=== PATIENT | female | born 1995 | race Caucasian/White ===

== ENCOUNTER 2022-09-23 08:20 | Inpatient (IN) ==
--- NOTE | 2022-09-23 08:39 | History & Physical Report ---
Date of Service September 23, 2022 Assessment & Plan (1) Uterine contractions at greater than 20 weeks of gestation: Plan: 27 yo at 39.6 wks with uterine contractions, not painful for her VSS Afebrile FHR reassuring Cervix posterior, patient seems comfortable Plan to monitor, ambulate recheck for cervical change All questions were answered. History of Present Illness Primary Care Provider: NO PCP Patient is a 27-year-old G1, P0 at 39 weeks and 6 days of gestation who has been feeling contractions since 4 AM this morning they have been every 6 to 7 minutes she thinks are getting closer. Pain level is 7 out of 10 but she does not require any pain medication she states they are not that bad yet. No LOF/VB. + FM's Her has been uncomplicated. 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) Vital Signs (Past 12 Hours) Vital Signs Temp Pulse BP 09/23/22 08:30 71 130/81 09/23/22 08:28 37.0 C
[2022-09-23] MEDS ORDERED: ACETAMINOPHEN 325 MG TAB PO PRN ×2 (08:55→21:44)
--- NOTE | 2022-09-23 08:58 | Obstetrical Progress Note ---
Date of Service September 23, 2022 Subjective After discussing pain levels patient now rates her pain 4-5/ 10 She desires natural labor, does not want Medications, Oxytocin nor AROM Desires to go home if not in active labor Continue to monitor Results & Data ([facility]) Vital Signs (Past 12 Hours) Vital Signs Temp Pulse BP 09/23/22 08:55 59 L 09/23/22 08:55 136/89 09/23/22 08:30 71 130/81 09/23/22 08:28 37.0 C
[2022-09-23] MEDS ORDERED: LIDOCAINE 1% LOCAL 20 ML VIAL INFIL PRN (12:35)
[2022-09-23] MEDS ORDERED: OXYTOCIN 30 UNITS/500 ML BAG IV PRN ×3 (12:35→21:44)
--- NOTE | 2022-09-23 12:38 | Obstetrical Progress Note ---
Date of Service September 23, 2022 Subjective Patient has been ambulating, pain got more intense VE; 5-6/ 70%/ -2 FHR categ I [place]; ctxs q 3-4 min Plan to admit monitor anticipate Patient plans not to get epidural for now. All questions were answered. Results & Data ([facility]) Vital Signs (Past 12 Hours) Vital Signs Temp Pulse Resp BP 09/23/22 08:56 36.7 C 59 L 20 136/89 09/23/22 12:26 67 09/23/22 12:26 132/85 09/23/22 08:55 59 L 09/23/22 08:55 136/89 09/23/22 08:30 71 130/81 09/23/22 08:28 37.0 C
[2022-09-23] MEDS: LACTATED RINGER'S 1,000 ML IV PRN ×4 (12:59→19:02)
[2022-09-23 13:12] LABS: Hematocrit (blood only) 39.8 % (34.1-44.9); Hemoglobin 14.4 g/dl (12.0-16.0); Mean Corpuscular Hemoglobin 32.8 pg (25.0-34.0); Mean Corpuscular Hgb Conc 36.2 g/dL (32.0-36.0); Mean Corpuscular Volume 90.7 fL (80.0-100.0); Mean Platelet Volume 11.2 fL (9.4-12.3); Platelet Count 223 K/uL (130-400); RDW Coefficient of Variation 12.3 % (11.5-14.5); RDW Standard Deviation 40.5 fL (36.4-46.3); Red Blood Count 4.39 M/uL (3.93-5.22); White Blood Count 17.83 K/ul (4.8-10.8)
[2022-09-23 13:39] LABS: Albumin Globulin Ratio 1.4 (0.9-2); Albumin Level 3.7 gm/dl (3.4-5.0); BUN Creatinine Ratio 18.3 (10-20); Bilirubin,Total 0.4 mg/dl (0.2-1.0); Calcium 9.1 mg/dl (8.5-10.1); Creatinine Clr Calc Pharmacy 138.8 ml/min; Est GFR (African American) 144.8 ml/min; Est GFR (Non-African American) 124.9 ml/min; Globulin 2.7 gm/dl (2.5-4.0); Potassium 3.9 mmol/L (3.5-5.1); Total Protein 6.4 gm/dl (6.0-8.3)
--- NOTE | 2022-09-23 15:19 | Obstetrical Progress Note ---
Date of Service September 23, 2022 Assessment & Plan Admission and Anticipated Discharge Date Admission Date: September 23, 2022 Subjective Patient felt pressure and has been painful VE; 6-7 cm/ 70%/ -1, muscular tension+ in vagina, uncomfortable with exam FHR categ I Plans not to get epidural for now and desires to ambulate Continue to monitor closely Results & Data ([facility]) Vital Signs (Past 12 Hours) Vital Signs Temp Pulse Resp BP 09/23/22 08:56 36.7 C 59 L 20 136/89 09/23/22 12:26 67 09/23/22 12:26 132/85 09/23/22 08:55 59 L 09/23/22 08:55 136/89 09/23/22 08:30 71 130/81 09/23/22 08:28 37.0 C
[2022-09-23] MEDS ORDERED: BUPIVACAINE 0.25% 30 ML VIAL ONE (15:27)
[2022-09-23] MEDS ORDERED: fentaNYL citrate 100 MCG/2 ML VIAL ONE (15:27)
[2022-09-23] MEDS ORDERED: ePHEDrine sulfate 50 MG/ML AMP ONE (15:27)
[2022-09-23] MEDS ORDERED: SODIUM CHLORIDE 0.9% INJ 10 ML VIAL ONE (15:27)
[2022-09-23] MEDS ORDERED: LIDOCAINE 2%/EPINEPHRINE 1:200,000 20 ML SDV ONE (15:28)
[2022-09-23] MEDS ORDERED: fentaNYL 2MCG/ML ROPIVACAINE 1.25MG/ML 100 ML BAG EPI ONE (15:28)
[2022-09-23] MEDS ORDERED: ONDANSETRON INJ 2 MG/ML 2 ML VIAL IV PRN (15:41)
[2022-09-23] MEDS ORDERED: NALOXONE HCL 0.4 MG/1 ML VIAL/CARP IV PRN (15:41)
[2022-09-23] MEDS ORDERED: NALBUPHINE HCL INJ 10 MG/ML AMP IV PRN (15:41)
[2022-09-23] MEDS ORDERED: NALOXONE HCL 1 MG in SODIUM CHLORIDE 0.9% 1000ML 1,000 ML IV PRN (15:41)
[2022-09-23] MEDS ORDERED: ePHEDrine sulfate 50 MG/ML AMP IV PRN (15:41)
[2022-09-23] MEDS ORDERED: diphenhydrAMINE 50 MG/ML VIAL IV PRN (15:41)
[2022-09-23] MEDS ORDERED: fentaNYL 2MCG/ML ROPIVACAINE 1.25MG/ML 100 ML BAG EPI PRN (15:41)
--- NOTE | 2022-09-23 15:41 | Anesthesiology Consultation ---
Date of Service September 23, 2022 Assessment & Plan Chart Review Chart Review: Patient NOT seen in Pre Admission Testing and Acceptable Risk for Labor Epidural Consults Requested none ASA ASA2 Proposed Anesthesia Anesthesia Type: Labor Epidural and CSE Risk / Benefits Reviewed With: PT / POA / Parent / Guardian, Accepts Plan and Informed Consent Obtained History Height/Weight Height: 5 ft 1 in Weight: 84.368 kg Allergies Allergy/AdvReac Type Severity Reaction Status Date / Time azithromycin Allergy Hives Verified 09/23/22 10:43 cephalexin Allergy Hives Verified 09/23/22 10:42 erythromycin base Allergy Hives Verified 09/23/22 10:44 Penicillins Allergy Hives Verified 09/23/22 10:41 Medications Home Medications Medication Instructions Recorded Confirmed Last Taken pediatric multivit 1 tab PO DAILY 09/23/22 09/23/22 1 Day Ago no.50-docosahexaenoic acid 16 mg ~09/22/22 chewable tablet ([employer] [place]-3 DHA) Active Medications Generic Name Dose Route Start Last Admin Trade Name Rashaunq PRN Reason Stop Dose Admin Lactated Ringer's 1,000 mls @ 150 mls/hr 09/23/22 12:35 09/23/22 15:32 Lr IV 09/25/22 12:34 999 mls/hr .[id number] PRN Administration L&D Protocol Protocol NPO Date Last Intake of Fluids: 09/23/22 Time Last Intake of Fluids: 14:00 Date Last Intake of Solids: 09/23/22 Time Last Intake of Solids: 09:00 Exercise / Class Metabolic Activity II 4-5 Yardwork/Stairs/Walk up hill Past Family History Family History Grandfather (Paternal) Diabetes Father Diabetes Grandfather (Maternal) Hypertension Grandmother (Maternal) Hypertension Leukemia Past Anesthesia History No Hx of Anesthesia Complications and No Family Hx of Anesthesia Complications History of PONV No Hx of PONV and No Hx of Motion Sickness Social History Smoking Status: Never smoker Do You Dip or Chew Tobacco: No Hx Alcohol Use: No Hx Substance Use: No substance use type: does not use Review of Systems no chest pain or sob Physical Exam Vital Signs Last Vital Signs Temp 36.6 C 09/23/22 15:37 Pulse 79 09/23/22 15:37 Resp 20 09/23/22 15:37 BP 132/75 09/23/22 15:37 Pulse Ox 100 09/23/22 15:37 ENMT Mouth: no TMJ abnormality Thyromental Distance: > or= 3.5 Finger Breadths Mallampati Class: II Neck normal visual inspection Respiratory normal respiratory effort Auscultation: lungs clear to auscultation bilaterally Cardiovascular Rate/Rhythm: regular rate and regular rhythm Musculoskeletal Spine: normal cervical ROM Neurologic moves all extremities Psychiatric Orientation: alert and oriented x 3 Testing Laboratory Results 09/23/22 12:59 09/23/22 12:59 Blood Type B Positive 09/23/22 12:59 Antibody Screen NEGATIVE 09/23/22 12:59
--- NOTE | 2022-09-23 18:53 | Obstetrical Progress Note ---
Date of Service September 23, 2022 Assessment & Plan Admission and Anticipated Discharge Date Admission Date: September 23, 2022 Subjective Patient is reevaluated. She received epidural and comfortable now. SROM'ed at 18:15 FHR categ I VE; 8-9 cm/ 90%/ 0, meconium stained fluid+ Recommended augmentation with Oxytocin and she agreed. Continue to monitor closely Results & Data ([facility]) Vital Signs (Past 12 Hours) Vital Signs Temp Pulse Resp BP Pulse Ox 09/23/22 08:56 36.7 C 59 L 20 136/89 09/23/22 18:47 100 09/23/22 18:47 84 09/23/22 18:42 100 09/23/22 18:42 77 09/23/22 18:37 100 09/23/22 18:37 82 09/23/22 18:37 77 09/23/22 18:37 118/62 09/23/22 18:00 16 09/23/22 18:00 37.0 C 16 09/23/22 18:32 100 09/23/22 18:32 77 09/23/22 18:27 100 09/23/22 18:27 71 09/23/22 18:23 81 09/23/22 18:23 133/73 09/23/22 18:22 100 09/23/22 18:22 86 09/23/22 18:20 91 09/23/22 18:20 94 H 09/23/22 16:03 36.9 C 09/23/22 18:17 99 09/23/22 18:17 83 09/23/22 18:12 100 09/23/22 18:12 69 09/23/22 18:07 100 09/23/22 18:07 72 09/23/22 18:07 67 09/23/22 18:07 95/50 L 09/23/22 18:02 100 09/23/22 18:02 71 09/23/22 17:57 100 09/23/22 17:57 71 09/23/22 17:52 100 09/23/22 17:52 63 09/23/22 17:52 95/50 L 09/23/22 17:47 100 09/23/22 17:47 64 09/23/22 17:42 99 09/23/22 17:42 69 09/23/22 17:38 64 09/23/22 17:38 106/59 L 09/23/22 17:37 100 09/23/22 17:37 76 09/23/22 17:34 92 09/23/22 17:34 105 H 09/23/22 17:32 100 09/23/22 17:32 97 H 09/23/22 17:27 99 09/23/22 17:27 96 H 09/23/22 17:22 100 09/23/22 17:22 105 H 09/23/22 17:22 117/65 09/23/22 17:17 100 09/23/22 17:17 88 09/23/22 17:12 100 09/23/22 17:12 84 09/23/22 17:07 100 09/23/22 17:07 86 09/23/22 17:05 81 09/23/22 17:05 115/67 09/23/22 17:02 100 09/23/22 17:02 74 09/23/22 17:00 83 09/23/22 17:00 117/68 09/23/22 16:57 100 09/23/22 16:57 91 H 09/23/22 16:56 82 09/23/22 16:56 120/65 09/23/22 16:52 100 09/23/22 16:52 77 09/23/22 16:50 77 09/23/22 16:50 110/63 09/23/22 16:47 100 09/23/22 16:47 78 09/23/22 16:45 72 09/23/22 16:45 112/63 09/23/22 16:42 100 09/23/22 16:42 79 09/23/22 16:40 98 H 09/23/22 16:40 105/67 09/23/22 16:37 100 09/23/22 16:37 74 09/23/22 16:35 74 09/23/22 16:35 113/69 09/23/22 16:32 100 09/23/22 16:32 78 09/23/22 16:31 72 09/23/22 16:31 114/69 09/23/22 16:27 96 09/23/22 16:27 83 09/23/22 16:26 96 H 09/23/22 16:26 112/66 09/23/22 16:22 100 09/23/22 16:22 83 09/23/22 16:21 75 09/23/22 16:21 111/73 09/23/22 16:17 100 09/23/22 16:17 72 09/23/22 16:15 80 09/23/22 16:15 117/73 09/23/22 16:12 100 09/23/22 16:12 73 09/23/22 16:10 76 09/23/22 16:10 113/68 09/23/22 16:07 100 09/23/22 16:07 74 09/23/22 16:03 87 09/23/22 16:03 117/77 09/23/22 16:02 100 09/23/22 16:02 87 09/23/22 16:01 80 09/23/22 16:01 116/73 09/23/22 15:59 81 09/23/22 15:59 116/71 09/23/22 15:57 100 09/23/22 15:57 80 09/23/22 15:57 117/69 09/23/22 15:56 91 H 09/23/22 15:56 124/62 09/23/22 15:54 89 09/23/22 15:54 152/76 H 09/23/22 15:52 100 09/23/22 15:52 85 09/23/22 15:47 100 09/23/22 15:47 84 09/23/22 15:42 100 09/23/22 15:42 72 09/23/22 15:41 94 09/23/22 15:41 94 H 09/23/22 15:37 20 09/23/22 15:37 36.6 C 20 09/23/22 15:37 100 09/23/22 15:37 79 09/23/22 15:37 78 09/23/22 15:37 132/75 09/23/22 12:26 67 09/23/22 12:26 132/85 09/23/22 08:55 59 L 09/23/22 08:55 136/89 09/23/22 08:30 71 130/81 09/23/22 08:28 37.0 C
[2022-09-23] MEDS ORDERED: MINERAL OIL 30 ML UDC ONE (20:39)
[2022-09-23] MEDS ORDERED: LIDOCAINE 2% LOCAL 20 ML VIAL ONE ×2 (21:21→21:29)
[2022-09-23] MEDS ORDERED: bisacodyL 10 MG SUPP PR PRN (21:44)
[2022-09-23] MEDS ORDERED: BENZOCAINE 20% AER SPR 82.5 GM CAN EXT PRN (21:44)
[2022-09-23] MEDS ORDERED: DIPHTHERIA/TETANUS/PERTUSSIS 0.5 ML SYR/VIAL IM ONE (21:44)
[2022-09-23] MEDS ORDERED: HYDROCORTISONE ACETATE 25 MG SUPP PR PRN (21:44)
[2022-09-23] MEDS ORDERED: oxyCODONE/ACETAMINOPHEN 5mg/325mg TAB PO PRN (21:44)
[2022-09-23] MEDS ORDERED: MEASLES, MUMPS & RUBELLA VIRUS VIAL SQ ONE (21:44)
--- NOTE | 2022-09-23 21:54 | Delivery Summary ---
Vaginal Delivery Summary Date of Service September 23, 2022 Vaginal Delivery Summary Patient was found to be fully dilated and desire to push she pushed for about 50 minutes and delivered the head without difficulty. Right hand came with the had, then the shoulders were delivered with minimal traction, the baby was handed to the mother where mouth and nose were suctioned. The cord was clamped times and cut at 1 minute delay. The baby was vigorously moving and crying at that point. Then the vagina and perineum were checked for lacerations. There was 1/3 degree perineal laceration at the posterior fourchette, which was confirmed with rectal exam. Rest of the vagina and labia were intact. Then the gloves were changed and then the placenta was found to be in the vagina, delivered spontaneously and was intact and complete. Uterus was explored and found to be empty. The lower segment was cleared of all clots and debris's, fundus was firm. IV oxytocin infusion was started. The external sphincter muscles were held with Allis clamps and brought to the midline. With 2-0 Vicryl multiple [id number] stitches were placed around the sphincter muscles. Then the rectal exam was repeated and excellent sphincter tone was noted and no sutures were felt. This sphincter area is reinforced with more sutures on the perineal body muscles. The rest of the vagina and bulbocavernosus muscles were repaired with another 2- 0 Vicryl in a running locked fashion. Vagina was friable and oozing minimally. It was covered with Hector powder. An excellent hemostasis was achieved. Mom and baby tolerated procedure well. Baby was a viable female , delivered at 21:10 PM, Apgars were 8/9. No complications happened and I was present during whole procedure. The end of the procedure sponge needle and instrument count was correct x2. EBL was 200 mL.
[2022-09-23] MEDS: IBUPROFEN 600 MG TAB PO PRN (23:24)
[2022-09-23] MEDS ORDERED: LIDOCAINE 2% LOCAL 50 ML VIAL INSTIL ONE (23:51)
[2022-09-23] MEDS ORDERED: MINERAL OIL 30 ML UDC PR ONE (23:52)
[2022-09-23] MEDS ORDERED: LIDOCAINE 1% LOCAL 20 ML VIAL INJ STA (23:56)
[2022-09-24] MEDS: IBUPROFEN 600 MG TAB PO PRN ×4 (03:32→18:04)
[2022-09-24 06:36] LABS: Hematocrit (blood only) 34.6 % (34.1-44.9); Hemoglobin 12.3 g/dl (12.0-16.0); Mean Corpuscular Hemoglobin 32.6 pg (25.0-34.0); Mean Corpuscular Hgb Conc 35.5 g/dL (32.0-36.0); Mean Corpuscular Volume 91.8 fL (80.0-100.0); Mean Platelet Volume 11.2 fL (9.4-12.3); Platelet Count 188 K/uL (130-400); RDW Coefficient of Variation 12.4 % (11.5-14.5); RDW Standard Deviation 41.4 fL (36.4-46.3); Red Blood Count 3.77 M/uL (3.93-5.22)
[2022-09-24] MEDS: PRENATAL VITAMIN 1 TAB PO SCH (08:33)
[2022-09-24] MEDS: DOCUSATE SODIUM 100 MG CAP PO SCH ×2 (08:33→20:01)
[2022-09-24] MEDS: FERROUS SULFATE 325 MG TAB PO SCH (08:33)
--- NOTE | 2022-09-24 08:37 | Anesthesia Procedure Note ---
Date of Service September 24, 2022 Anesthesia Post Epidural Note Vital Signs Vital Signs: Temp Pulse Resp BP Pulse Ox O2 Del Method 36.5 C 70 18 108/80 97 09/24/22 03:10 09/24/22 03:10 09/24/22 03:10 09/24/22 03:10 09/24/22 03:10 09/24/22 03:10 Notes Mental Status: alert / awake / arousable and participated in evaluation Nausea / Vomiting: adequately controlled Pain: adequately controlled Airway Patency, RR, SpO2: stable & adequate BP & HR: stable & adequate Hydration State: stable & adequate Neuraxial Anesthesia: was administered and sensory block is resolving Anesthetic Complications: no major complications apparent Epidural: Removed without complications and With tip intact
--- NOTE | 2022-09-24 08:59 | Obstetrical Progress Note ---
Date of Service September 24, 2022 Assessment & Plan (1) Normal course: Continue routine PP course D/c home tomorrow if well (2) Third degree perineal laceration: Colace for 30 days Avoid staining and opioids if possible Subjective Ambulation: ambulating normally Voiding: no voiding problems Passing Gas:: Yes Diet Tolerance:: regular diet Lochia:: Moderate Feeding Type:: breast feeding Current Pain Level(1-10): 2 Doing well No complaints except pain of laceration. Meds and ice pack helping Physical Exam Constitutional WD/WN, vitals as above Respiratory normal respiratory effort, lungs clear to auscultation Cardiovascular RRR, no murmur, no edema Gastrointestinal (Abdomen) normal bowel sounds, soft, nontender, no hepatosplenomegaly Results & Data ([facility]) Vital Signs (Past 12 Hours) Vital Signs Temp Pulse Pulse Resp BP BP Pulse Ox 09/24/22 03:10 36.5 C 70 18 108/80 97 09/24/22 01:20 37.2 C 82 18 98 09/23/22 23:50 18 09/23/22 23:20 18 09/23/22 23:52 89 09/23/22 23:52 126/65 09/23/22 23:37 87 09/23/22 23:37 123/67 09/23/22 23:22 84 09/23/22 23:22 124/67 09/23/22 23:07 88 09/23/22 23:07 125/66 09/23/22 22:52 90 09/23/22 22:52 133/70 09/23/22 22:49 91 H 09/23/22 22:49 123/59 L 09/23/22 22:37 88 09/23/22 22:37 126/60 09/23/22 21:22 79 09/23/22 21:22 115/57 L 09/23/22 21:17 93 09/23/22 21:17 85 09/23/22 21:18 85 09/23/22 21:18 119/61 09/23/22 21:12 97 09/23/22 21:12 89 09/23/22 21:07 85 L 09/23/22 21:07 125 H 09/23/22 21:02 98 09/23/22 21:02 92 H 09/23/22 20:59 81 L 09/23/22 20:59 138 H 09/23/22 20:57 96 09/23/22 20:57 130 H O2 Del Method 09/24/22 03:10 Room Air 09/24/22 01:20 Room Air 09/23/22 23:50 09/23/22 23:20 09/23/22 23:52 09/23/22 23:52 09/23/22 23:37 09/23/22 23:37 09/23/22 23:22 09/23/22 23:22 09/23/22 23:07 09/23/22 23:07 09/23/22 22:52 09/23/22 22:52 09/23/22 22:49 09/23/22 22:49 09/23/22 22:37 09/23/22 22:37 09/23/22 21:22 09/23/22 21:22 09/23/22 21:17 09/23/22 21:17 09/23/22 21:18 09/23/22 21:18 09/23/22 21:12 09/23/22 21:12 09/23/22 21:07 09/23/22 21:07 09/23/22 21:02 09/23/22 21:02 09/23/22 20:59 09/23/22 20:59 09/23/22 20:57 09/23/22 20:57 Laboratory Results H/H 12.3/34.6%
[2022-09-24] MEDS ORDERED: bisacodyL 5 MG TABEC PO SCH (20:00)
[2022-09-25] MEDS: IBUPROFEN 600 MG TAB PO PRN ×3 (01:21→15:36)
[2022-09-25 07:39] LABS: Hematocrit (blood only) 32.8 % (34.1-44.9); Hemoglobin 11.3 g/dl (12.0-16.0)
[2022-09-25] MEDS: FERROUS SULFATE 325 MG TAB PO SCH (08:18)
[2022-09-25] MEDS: DOCUSATE SODIUM 100 MG CAP PO SCH (08:18)
[2022-09-25] MEDS: PRENATAL VITAMIN 1 TAB PO SCH (08:18)
--- NOTE | 2022-09-25 09:04 | Obstetrical Progress Note ---
Date of Service September 25, 2022 Assessment & Plan (1) Normal course: Continue routine PP course D/c home today (2) Third degree perineal laceration: Colace for 30 days Avoid staining and opioids if possible Subjective Constitutional: + as per Subjective / HPI Physical Exam Constitutional WD/WN, vitals as above Respiratory normal respiratory effort, lungs clear to auscultation Cardiovascular RRR, no murmur, no edema Gastrointestinal (Abdomen) normal bowel sounds, soft, nontender, no hepatosplenomegaly Results & Data ([facility]) Vital Signs (Past 12 Hours) Vital Signs Temp Pulse Resp BP Pulse Ox O2 Del Method 09/24/22 22:55 37 C 82 18 132/83 95 Room Air
[2022-09-26] MEDS ORDERED: [UNRECOGNIZED DRUG - REMARK] PO SCH (09:00)
== END 2022-09-25 16:15 | disposition home or self-care (01) | DRG 768 ==
LOC: OPB 08:20 → 4S1 08:26 → 4E2 09-24 01:05
DX: Z3A.39 39 weeks gestation of pregnancy; Z37.0 Single live birth; O70.20 Third degree perineal laceration during delivery, unspecified; Z88.0 Allergy status to penicillin; Z83.3 Family history of diabetes mellitus; Z88.1 Allergy status to other antibiotic agents

== ENCOUNTER 2024-01-02 02:56 | Inpatient (IN) ==
[2024-01-02] MEDS ORDERED: OXYTOCIN 30 UNITS/NSS 30 UNITS/500 ML BAG IV PRN ×2 (03:11→05:29)
[2024-01-02] MEDS ORDERED: LIDOCAINE 1% LOCAL 20 ML VIAL INFIL PRN (03:11)
--- NOTE | 2024-01-02 03:14 | History & Physical Report ---
Date of Service January 02, 2024 History of Present Illness Chief Complaint: labor at term Primary Care Provider: NO PCP 28 F P1001 at 41 weeks presents in active labor. GBS is negative Allergies Allergy/AdvReac Type Severity Reaction Status Date / Time azithromycin Allergy Hives Verified 09/23/22 10:43 cephalexin Allergy Hives Verified 09/23/22 10:42 erythromycin base Allergy Hives Verified 09/23/22 10:44 Penicillins Allergy Hives Verified 09/23/22 10:41 Home Medications Medication Instructions Recorded Confirmed Type pediatric multivit 1 tab PO DAILY 09/23/22 09/23/22 History no.50-docosahexaenoic acid 16 mg chewable tablet ([employer] [place]-3 DHA) Patient History Family History Grandfather (Paternal) Diabetes Father Diabetes Grandfather (Maternal) Hypertension Grandmother (Maternal) Hypertension Leukemia Social History Smoking Status: Never smoker Second Hand Exposure: No; Do You Dip or Chew Tobacco: No; Hx Alcohol Use: No Hx Substance Use: No Preferred Language: Luxembourgish Communication Ability: Effective Park Keeper Required: No Beliefs That Will Affect Care: None marital status: Current Living Situation: Spouse Feels Safe at Home: Yes Assistive Devices: Contacts 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
--- NOTE | 2024-01-02 04:42 | Delivery Summary ---
Vaginal Delivery Summary Date of Service January 02, 2024 Vaginal Delivery Summary live female ROSI/hand presentation over intact female with nuchal cord x2 reduced at delivery withdelayed cord clamping and Apgars 7/9 weight pending. Cord blood obtained followed by spontaneous delivery of intact placenta. No tears. EBL 150 ml. Final sponge and instrument count are found to be correct. Mom and baby stable.
[2024-01-02 05:13] LABS: Hemoglobin 15.5 g/dl (12.0-16.0); Mean Corpuscular Hemoglobin 31.7 pg (25.0-34.0); Mean Corpuscular Volume 87.9 fL (80.0-100.0); Mean Platelet Volume 10.6 fL (9.4-12.4); Platelet Count 218 K/uL (130-400); RDW Coefficient of Variation 12.4 % (11.5-14.5); RDW Standard Deviation 40.2 fL (36.4-46.3); Red Blood Count 4.89 M/uL (4.20-5.40); White Blood Count 21.63 K/ul (4.8-10.8)
[2024-01-02] MEDS ORDERED: HYDROCORTISONE ACETATE 25 MG SUPP PR PRN (05:29)
[2024-01-02] MEDS: IBUPROFEN 600 MG TAB PO ONE (05:34)
--- OUTSIDE RECORDS SUMMARY | 2024-01-02 06:43 | External Medical Summary | Summary of Care ---
Author Name Unknown Organization [facility] Address [address] [place] [address] Phone [phone] Care Team Providers Care Coal Wheeler Name Role Phone Constantin Roque MD Primary Care Provider + Reason for Visit * Reason Comments Return Visit Encounter Details Date Type Department Care Team (Late st Contact Info) Description 01/01/2024 11:15 AM EST Office Visit Gynecology/Obstetric s Marky Phan [address] [facility] [place] [address] Diane Cuenca CRNP [address] [facility] [place] [address] Sylvester Non Stress Tests David [address] [facility] [place] [address] Normal in third trimester*; Short interval between pregnancies complicating , antepartum; Post-term , 40-42 weeks of gestation [O48.0]; Non-reactive NST (non-stress test) Allergies Active Allergy Reactions Criticality Noted Date Comments Azithromycin 06/10/2022 Cephalexin Hives 06/10/2022 Penicillins Hives 06/10/2022 documented as of this encounter (statuses as of 01/01/2024) Medications Medication Sig Dispensed Refills Start Date End Date Status Flinstones Gummies [place]-3 DHA Oral Tablet Chewable Take 2 Tablets by mouth in the morning. 0 Active Breast PumpIndications:Breas t feeding status of mother Estimated Date of Delivery: 12/24/23, Z39.1, double electric pump to use as directed 1 Each 0 10/19/2023 Active documented as of this encounter (statuses as of 01/01/2024) Active Problems Problem Noted Date Diagnosed Date Normal 05/17/2023 Short interval between pregn ancies complicating , antepartum 05/17/2023 Overview: 09/2022 last delivery Pain of toe of right foot 02/09/2023 Toenail avulsion, initial encounter 02/09/2023 Estimated Date of Delivery Comme nts Yes 12/24/2023 Based on last me nstrual period of 03/19/2023 (Exact Date) documented as of this encounter (statuses as of 01/01/2024) Resolved Problems Problem Noted Date Diagnosed Date Resolved Date Normal 09/14/2022 10/05/2022 Abnormal ultrasonic finding on screening of mother 07/06/2022 09/14/2022 Overview: Previously seen pyelectasis. Last Assessment & Plan: kidneys are normal on today's ultrasound. Suspected placental problem not found 06/23/2022 09/21/2022 Overview: Transferred care from [place] and had NOB with [facility] on 06/23/22. She had pyelectasis and marginal cord insertion, which both resolved prior to transferring to [facility]. MFM referral placed. Last Assessment & Plan: Eccentric cord insertion into the placenta. Normal growth. No indication for additional monitoring. documented as of this encounter (statuses as of 01/01/2024) Immunizations Name Administration Dates Next Due Seasonal Influenza, PF, 6 M & above, IM , (FluLaval or Fluzone) 09/20/2023,07/22/2022 TDAP (age 10 and older)(Boostrix) 10/06/2023, documented as of this encounter Social History Tobacco Use Types Packs/Day Years Used Date Smoking Tobacco: Never Passive Smoke Exposure: Never Smokeless Tobacco: Never Alcohol Use Standard Drinks/Week Comments Not Currently 0 (1 standard drink = 0.6 oz pur e alcohol) PHQ-2 Answer Date Recorded PHQ Adult Total Score 0 10/27/2023 Hunger Vital Sign Answer Date Recorded Within the past 12 months, y ou worried that your food would run out before you got the money to buy more. Never true 08/10/20 23 Within the past 12 months, t he food you bought just didn't last and you didn't have money to get more. Never true 08/10/2023 [place] Depression Scale Answer Date Recorded [place] Depression Scale Total 0 11/13/2023 The thought of harming myself has occurred to me . Never 11/13/2023 Estimated Date of Delivery Comme nts Yes 12/24/2023 Based on last me nstrual period of 03/19/2023 (Exact Date) Sex and Gender Information Value Date Recorded Sex Assigned at Female 06/23/2022 9:13 AM EDT Gender Identity Female 06/23/2022 9:13 AM EDT Sexual Orientation Straight 06/23/2022 9: 13 AM EDT Job Start Date Occupation Industry Not on file Not on file Not on file documented as of this encounter Last Filed Vital Signs Vital Sign Reading Time Taken Comments Blood Pressure 104/68 01/01/2024 9:54 AM EST Pulse - - Temperature - - Respiratory Rate - - Oxygen Saturation - - Inhaled Oxygen Concentration - - Weight 85.2 kg (187 lb 12.8 oz) 01/01/2024 9:54 AM EST Height - - Body Mass Index 35.51 12/25/2023 3:42 PM EST documented in this encounter Progress Notes * Diane Cuenca CRNP - 01/01/2024 9:58 AM EST 41w1d RAMESH today 16.6 cm, vertex presentation. Baby is active; no ctx, leaking, bleeding. Has an induction scheduled this week. Requests cervical exam; 2 cm/50 % effaced. Declines membrane sweep or earlier IOL. Recommend NST on Monday; call sooner with decreased FM or labor signs. Chainstitch Seat Joiner - SIGRID Yap LPN ASSESSMENT assessment with Non-stress Test completed on 01/01/2024 at 41.1 weeks gestation for indicationof Post VERONICA heart baseline: 150 bpm Variability: Moderate Decelerations: absent Accelerations: absent Contractions: None, +irritability NST start time: 0948 NST stop time: 1033 NST strip reviewed, interpreted, and approved by OB provider, SIGRID Amaya . NST strip stored in clinic storage file BPP for non-reactive NST: 06/13 documented in this encounter Nursing Notes * Deanna Sanders LPN - 01/01/2024 9:55 AM EST Pt is currently 41w1d with an Estimated Date of Delivery: 12/24/23 - NST/RAMESH post dates RAMESH 16.6cm documented in this encounter Plan of Treatment Upcoming Encounters Date Type Department Care Team (Late st Contact Info) Description 01/03/2024 10:00 AM EST Office Visit [facility]necology[facility]Obst[facility]s [facility] [address] [place] [address] Sara Taylor CRNP [address] [place] [address] Taylor Phan Stress Tests David [address] [place] [address] 01/24/2024 9:45 AM EDT Telemedicine [facility] [address] [place] [address] Sara Taylor CRNP [address] [place] [address] 02/12/2024 10:30 AM EDT Office [facility] [address] [place] [address] Joi Goldman, DNP, CNM [address] [place] [address] [place] [address] Pending Results Name Type Priority Associated Diagnoses Date /Time US BPP W/O NON-STRESS TEST Medical Imaging Routine Normal in third trimester Post-term , 40-42 weeks of gestation [O48.0] Non-reactive NST (non-stress test) 01/01/2024 10:50 AM EST Scheduled Orders Name Type Priority Associated Diagnoses Orde r Schedule US BPP W/O NON-STRESS TEST Medical Imaging Routine Normal in third trimester Post-term , 40-42 weeks of gestation [O48.0] Non-reactive NST (non-stress test) Expected: 01/01/2024, Expires: 01/29/2025 Health Maintenance Due Date Last Done Comments Hepatitis B (1 of 3 - 19+ 3-dose series) 2014 COVID-19 Vaccine ( - 2022-2 4 season) 2023 Depression Screening 10/27/2024 10/27/2023 Pap Smear 12/12/2025 12/12/2022 DTaP,Tdap,and Td Vaccines (3 - Td or Tdap) 10/06/2033 10/06/2023, 07/06/2022 Influenza Vaccine (FLU shot) Completed , 07/22/2022, 07/22/2022 GARDASIL-HPV IMMUNIZATION SERIES Aged Out No longer eligible b ased on patient's age to complete this topic MENINGOCOCCAL (MENACTRA/MENVEO) Aged Out No longer eligible b ased on patient's age to complete this topic Pneumococcal Vaccine: Pediatrics (0 to 5 Years) and At-Risk Patients (6 to 64 Years) Aged Out No longer eligible b ased on patient's age to complete this topic documented as of this encounter Medical Devices Not on filedocumented as of this encounter Visit Diagnoses Diagnosis Normal in third trimester- Primary Short interval between pregnancies complicating , antepartum Supervision of other high-risk Post-term , 40-42 weeks of gestation [O48.0] Post term , unspecified episode of care Non-reactive NST (non-stress test) Abnormal findings on screening documented in this encounter Care Teams Coal Wheeler Relationship Specialty Start Date End Date Constantin Roque MD [address] [place] [address] PCP - General Family Medicine 04/25/23 documented as of this encounter
--- OUTSIDE RECORDS SUMMARY | 2024-01-02 06:44 | External Medical Summary | Summary of Care ---
Author Name Unknown Organization [facility] Address [address] [place] [address] Phone [phone] Care Team Providers Care Stores Clerk Name Role Phone Constantin Roque MD Primary Care Provider + Reason for Visit * Reason Comments Return Visit Encounter Details Date Type Department Care Team (Late st Contact Info) Description 11/27/2023 8:00 AM EST Office Visit Gynecology/Obstetric s [facility] Phan [address] [facility] [place] [address] Sara Taylor CRNP [address] [place] [address] Normal in third trimester*; Short interval between pregnancies complicating , antepartum Allergies Active Allergy Reactions Criticality Noted Date Comments Azithromycin 06/10/2022 Cephalexin Hives 06/10/2022 Penicillins Hives 06/10/2022 documented as of this encounter (statuses as of 11/27/2023) Medications Medication Sig Dispensed Refills Start Date End Date Status Jaquan Rodriguez [place]-3 DHA Oral Tablet Chewable Take 2 Tablets by mouth in the morning. 0 Active Breast PumpIndications:Breas t feeding status of mother Estimated Date of Delivery: 12/24/23, Z39.1, double electric pump to use as directed 1 Each 0 10/19/2023 Active documented as of this encounter (statuses as of 11/27/2023) Active Problems Problem Noted Date Diagnosed Date Normal 05/17/2023 Short interval between pregn ancies complicating , antepartum 05/17/2023 Overview: 09/2022 last delivery Pain of toe of right foot 02/09/2023 Toenail avulsion, initial encounter 02/09/2023 Estimated Date of Delivery Comme nts Yes 12/24/2023 Based on last me nstrual period of 03/19/2023 (Exact Date) documented as of this encounter (statuses as of 11/27/2023) Resolved Problems Problem Noted Date Diagnosed Date Resolved Date Normal 09/14/2022 10/05/2022 Abnormal ultrasonic finding on screening of mother 07/06/2022 09/14/2022 Overview: Previously seen pyelectasis. Last Assessment & Plan: kidneys are normal on today's ultrasound. Suspected placental problem not found 06/23/2022 09/21/2022 Overview: Transferred care from [place] and had NOB with [facility] on 06/23/22. She had pyelectasis and marginal cord insertion, which both resolved prior to transferring to [facility]. MFM referral placed. Last Assessment & Plan: Eccentric cord insertion into the placenta. Normal growth. No indication for additional monitoring. documented as of this encounter (statuses as of 11/27/2023) Immunizations Name Administration Dates Next Due Seasonal [...] money to get more. Never true 08/10/2023 [place] Depression Scale Answer Date Recorded [place] Depression Scale Total 0 11/13/2023 The thought [...] Sign Reading Time Taken Comments Blood Pressure 100/62 11/27/2023 7:57 AM EST Pulse - - Temperature - - Respiratory Rate - - Oxygen Saturation - - Inhaled Oxygen Concentration - - Weight 81.2 kg (179 lb) 11/27/2023 7:57 AM EST Height 154.9 cm (5' 0.98") 11/27/2023 7:57 AM ES T Body Mass Index 33.84 11/27/2023 7:57 AM EST documented in this encounter Progress Notes * Sara Taylor CRNP - 11/27/2023 8:20 AM EST 36w1d Concerned that baby is not head down. Transverse by [employer], but pt states that baby is in various positions throughout the day. Will obtain u/s for position check, f/u with physician. Baby is active. Having a few contractions a day, nothing regular. No bleeding or LOF. GBS today. Plumbing Service Technician Documentation Provider requested water inspector. Name of water inspector: SIGRID Gasca * Chandrika Ramirez LPN - 11/27/2023 7:57 AM EST 36w1d Need gbs Position Script for milk bags documented in this encounter Plan of Treatment Upcoming Encounters Date Type Department Care Team (Late st Contact Info) Description 12/07/2023 2:15 PM EST Imaging Radiology [facility] [address] [place] [address] 12/07/2023 3:15 PM EST Office Visit Gynecology/Obstetrics [address] [place] [address] No Fung MD [address] [place] [address] 12/11/2023 8:30 AM EST Office Visit Gynecology/Obstetrics [address] [place] [address] Diane Cuenca CRNP 132 [place] [address] 12/22/2023 8:45 AM EST Office Visit Gynecology/Obstetrics [address] [address] Joi Goldman, ADRIANA, CNM [address] [place] [address] Pending Results Name Type Priority Associated Diagnoses Date /Time GROUP B STREP CULTURE/PCR Lab Routine Normal in third trimester 11/27/2023 8:22 AM EST Scheduled Orders Name Type Priority Associated Diagnoses Orde r Schedule GROUP B STREP CULTURE/PCR Lab Routine Normal in third trimester Expected: 11/27/2023, Expires: 11/27/2024 US PREG FOLLOW-UP EACH FETUS Medical Imaging Routine Normal in third trimester Expected: 11/27/2023 (Approximate), Expires: 12/28/2024 Health Maintenance Due Date Last Done Comments Hepatitis B (1 of 3 - 3-dose series) 1995 COVID-19 Vaccine (#1) 1995 Depression Screening 10/27/2024 10/27/2023 Pap Smear 12/12/2025 [...] complicating , antepartum Supervision of other high-risk documented in this encounter Care Teams Stores Clerk Relationship Specialty Start Date End Date Constantin Roque MD [address] [place] [address] PCP - General Family Medicine 04/25/23 documented as of this encounter
--- OUTSIDE RECORDS SUMMARY | 2024-01-02 06:44 | External Medical Summary | Summary of Care ---
Author Name Unknown Organization [facility] Address [address] [place] [address] Phone [phone] Care Team Providers Care Commercial Solar Sales Consultant Name Role Phone Constantin Roque MD Primary Care Provider + Reason for Visit * Reason Onset Date Comments Test Results 12/11/2023 Encounter Details Date Type Department Care Team (Late st Contact Info) Description 12/11/2023 Telephone Gynecology/Obstetrics [facility] [address] [place] [address] No Fung MD [address] [place] [id number] Test Results Allergies Active Allergy Reactions Criticality Noted Date Comments Azithromycin 06/10/2022 Cephalexin Hives 06/10/2022 Penicillins Hives 06/10/2022 documented as of this encounter (statuses as of 12/11/2023) Medications Medication Sig Dispensed Refills Start Date End Date Status Flinshuan Gummies [place]-3 DHA Oral Tablet Chewable Take 2 Tablets by mouth in the morning. 0 Active Breast PumpIndications:Breas t feeding status of mother Estimated Date of Delivery: 12/24/23, Z39.1, double electric pump to use as directed 1 Each 0 10/19/2023 Active documented as of this encounter (statuses as of 12/11/2023) Active Problems Problem Noted Date Diagnosed Date Normal 05/17/2023 Short interval between pregn ancies complicating , antepartum 05/17/2023 Overview: 09/2022 last delivery Pain of toe of right foot 02/09/2023 Toenail avulsion, initial encounter 02/09/2023 Estimated Date of Delivery Comme nts Yes 12/24/2023 Based on last me nstrual period of 03/19/2023 (Exact Date) documented as of this encounter (statuses as of 12/11/2023) Resolved Problems Problem Noted Date Diagnosed Date Resolved Date Normal 09/14/2022 10/05/2022 Abnormal ultrasonic finding on screening of mother 07/06/2022 09/14/2022 Overview: Previously seen pyelectasis. Last Assessment & Plan: kidneys are normal on today's ultrasound. Suspected placental problem not found 06/23/2022 09/21/2022 Overview: Transferred care from [place] and had NOB with [facility] on 06/23/22. She had pyelectasis and marginal cord insertion, which both resolved prior to transferring to [facility]. MFM referral placed. Last Assessment & Plan: Eccentric cord insertion into the placenta. Normal growth. No indication for additional monitoring. documented as of this encounter (statuses as of 12/11/2023) Immunizations Name Administration Dates Next Due Seasonal [...] money to get more. Never true 08/10/2023 [place] Depression Scale Answer Date Recorded [place] Depression Scale Total 0 11/13/2023 The thought [...] on file documented as of this encounter Miscellaneous Notes * Telephone Encounter - Deanna Sanders LPN - 12/11/2023 8:04 AM EST ----- Message from No Fung MD sent at 12/11/2023 7:11 AM EST ----- Please kindly let patient know GBS swab was negative Thank you ----- Message ----- From: Beryl Cruz Automated Processing Sent: 12/08/2023 8:54 PM EST To: No Fung MD documented in this encounter Plan of Treatment Upcoming Encounters Date Type Department Care Team (Late st Contact Info) Description 12/11/2023 8:30 AM EST Office Visit Gynecology/Obstetric s Marky Pereiras [address] [place] [address] ОлегerDiane CRNP [address] [place] [address] Normal in third trimester*; Short interval between pregnancies complicating , antepartum 12/22/2023 8:45 AM EST Office Visit Gynecology/Obstetric [place] Phan [address] [place] [address] Joi Goldman, ADRIANA, CNM [address] [place] [address] [place] [address] Health Maintenance Due Date Last Done Comments [...] Not on filedocumented as of this encounter Care Teams Commercial Solar Sales Consultant Relationship Specialty Start Date End Date Constantin Roque MD [address] [place] [address] PCP - General Family Medicine 04/25/23 documented as of this encounter
--- OUTSIDE RECORDS SUMMARY | 2024-01-02 06:44 | External Medical Summary | Summary of Care ---
Author Name Unknown Organization [facility] Address [address] [place] [address] Phone [phone] Care Team Providers Care Counterperson Name Role Phone Constantin Roque MD Primary Care Provider + Reason for Visit * Reason Comments Return Visit Encounter Details Date Type Department Care Team (Late st Contact Info) Description 12/07/2023 3:15 PM EST Office Visit Gynecology/Obstetric [facility] 132 [facility] [place] [address] No Fung MD [address] [place] [address] 37 weeks gestation of *; Normal in third trimester; Short interval between pregnancies complicating , antepartum Allergies Active Allergy Reactions Criticality Noted Date Comments Azithromycin 06/10/2022 Cephalexin Hives 06/10/2022 Penicillins Hives 06/10/2022 documented as of this encounter (statuses as of 12/07/2023) Medications Medication Sig Dispensed Refills Start Date End Date Status Flinstones Gummies [place]-3 DHA Oral Tablet Chewable Take 2 Tablets by mouth in the morning. 0 Active Breast PumpIndications:Breas t feeding status of mother Estimated Date of Delivery: 12/24/23, Z39.1, double electric pump to use as directed 1 Each 0 10/19/2023 Active documented as of this encounter (statuses as of 12/07/2023) Active Problems Problem Noted Date Diagnosed Date Normal 05/17/2023 Short interval between pregn ancies complicating , antepartum 05/17/2023 Overview: 09/2022 last delivery Pain of toe of right foot 02/09/2023 Toenail avulsion, initial encounter 02/09/2023 Estimated Date of Delivery Comme nts Yes 12/24/2023 Based on last me nstrual period of 03/19/2023 (Exact Date) documented as of this encounter (statuses as of 12/07/2023) Resolved Problems Problem Noted Date Diagnosed Date Resolved Date Normal 09/14/2022 10/05/2022 Abnormal ultrasonic finding on screening of mother 07/06/2022 09/14/2022 Overview: Previously seen pyelectasis. Last Assessment & Plan: kidneys are normal on today's ultrasound. Suspected placental problem not found 06/23/2022 09/21/2022 Overview: Transferred care from [place] and had NOB with [facility] on 06/23/22. She had pyelectasis and marginal cord insertion, which both resolved prior to transferring to [facility]. MFM referral placed. Last Assessment & Plan: Eccentric cord insertion into the placenta. Normal growth. No indication for additional monitoring. documented as of this encounter (statuses as of 12/07/2023) Immunizations Name Administration Dates Next Due Seasonal [...] money to get more. Never true 08/10/2023 [place] Depression Scale Answer Date Recorded [place] Depression Scale Total 0 11/13/2023 The thought [...] Sign Reading Time Taken Comments Blood Pressure 118/76 12/07/2023 2:41 PM EST Pulse - - Temperature - - Respiratory Rate - - Oxygen Saturation - - Inhaled Oxygen Concentration - - Weight 83 kg (183 lb) 12/07/2023 2:41 PM EST Height 154.9 cm (5' 0.98") 12/07/2023 2:41 PM ES T Body Mass Index 34.6 12/07/2023 2:41 PM EST documented in this encounter Progress Notes * No Fung MD - 12/07/2023 3:15 PM EST Patient is 28 year old at 37 4/7 weeks who presents for TEA visit Denies regular contractions, leaking of fluid, or vaginal bleeding. Noted good movement Denies headache, blurry vision, RUQ or epigastric pain. US results pending-states baby is head down Problem list reviewed BP 118/76 | Ht 1.549 m (5' 0.98") | Wt 83 kg (183 lb) | LMP 03/19/2023 (Exact Date) | BMI 34.60 kg/m | BSA 1.89 m FH: 37 FHT: 145 Cx: declined GBS collected Guardian Ad Litem Documentation Provider requested casino enforcement agent. Name of casino enforcement agent: Nadir Kirby SENIOR LINUX ENGINEER Plan: Labor and preeclampsia warnings reviewed Family planning for contraception RTC 1 weeks V Kenton CASTLE PhD documented in this encounter Nursing Notes * Janine Torres LPN - 12/07/2023 2:45 PM EST 37w4d Denies concerns. GBS repeat today. Growth US today- 58th%, 3138 gm. RAMESH 17.4cm. documented in this encounter Plan of Treatment Upcoming Encounters Date Type Department Care Team (Late st Contact Info) Description 12/11/2023 8:30 AM EST Office Visit Gynecology/Obstetrics [facility] [address] [place] [address] Diane Cuenca CRNP [address] [place] [address] 12/22/2023 8:45 AM EST Office Visit Gynecology/Obstetrics [facility] [address] [place] [address] Joi Goldman, DNP, CNM [address] [facility] [place] [phone] Pending Results Name Type Priority Associated Diagnoses Date /Time GROUP B STREP CULTURE/PCR Lab Routine 37 weeks gestation of 12/07/2023 2:56 PM EST Scheduled Orders Name Type Priority Associated Diagnoses Orde r Schedule GROUP B STREP CULTURE/PCR Lab Routine 37 weeks gestation of Expected: 12/07/2023, Expires: 12/07/2024 Health Maintenance Due Date Last Done Comments [...] as of this encounter Visit Diagnoses Diagnosis 37 weeks gestation of - Primary state, incidental Normal in third trimester Short interval between pregnancies complicating , antepartum Supervision of other high-risk documented in this encounter Care Teams Counterperson Relationship Specialty Start Date End Date Constantin Roque MD [address] [place] [address] PCP - General Family Medicine 04/25/23 documented as of this encounter
--- OUTSIDE RECORDS SUMMARY | 2024-01-02 06:44 | External Medical Summary | Summary of Care ---
Author Name Unknown Organization [facility] Address [address] [place] [address] Phone [phone] Care Team Providers Care Tank Builder And Erector Name Role Phone Constantin Roque MD Primary Care Provider + Reason for Visit * Reason Comments Return Visit Encounter Details Date Type Department Care Team (Late st Contact Info) Description 12/19/2023 7:30 AM EST Office Visit Gynecology/Obstetric s Marky Phan [address] [place] [phone] Diane Cuenca CRNP [address] [place] [address] Normal in third trimester*; Short interval between pregnancies complicating , antepartum Allergies Active Allergy Reactions Criticality Noted Date Comments Azithromycin 06/10/2022 Cephalexin Hives 06/10/2022 Penicillins Hives 06/10/2022 documented as of this encounter (statuses as of 12/19/2023) Medications Medication Sig Dispensed Refills Start Date End Date Status Flinshuan Gummies [place]-3 DHA Oral Tablet Chewable Take 2 Tablets by mouth in the morning. 0 Active Breast PumpIndications:Breas t feeding status of mother Estimated Date of Delivery: 12/24/23, Z39.1, double electric pump to use as directed 1 Each 0 10/19/2023 Active documented as of this encounter (statuses as of 12/19/2023) Active Problems Problem Noted Date Diagnosed Date Normal 05/17/2023 Short interval between pregn ancies complicating , antepartum 05/17/2023 Overview: 09/2022 last delivery Pain of toe of right foot 02/09/2023 Toenail avulsion, initial encounter 02/09/2023 Estimated Date of Delivery Comme nts Yes 12/24/2023 Based on last me nstrual period of 03/19/2023 (Exact Date) documented as of this encounter (statuses as of 12/19/2023) Resolved Problems Problem Noted Date Diagnosed Date Resolved Date Normal 09/14/2022 10/05/2022 Abnormal ultrasonic finding on screening of mother 07/06/2022 09/14/2022 Overview: Previously seen pyelectasis. Last Assessment & Plan: kidneys are normal on today's ultrasound. Suspected placental problem not found 06/23/2022 09/21/2022 Overview: Transferred care from [place] and had NOB with [facility] on 06/23/22. She had pyelectasis and marginal cord insertion, which both resolved prior to transferring to [facility]. MFM referral placed. Last Assessment & Plan: Eccentric cord insertion into the placenta. Normal growth. No indication for additional monitoring. documented as of this encounter (statuses as of 12/19/2023) Immunizations Name Administration Dates Next Due Seasonal [...] money to get more. Never true 08/10/2023 [place] Depression Scale Answer Date Recorded [place] Depression Scale Total 0 11/13/2023 The thought [...] Reading Time Taken Comments Blood Pressure 104/68 12/19/2023 7:27 AM EST Pulse - - Temperature - - Respiratory Rate - - Oxygen Saturation - - Inhaled Oxygen Concentration - - Weight 83.9 kg (185 lb) 12/19/2023 7:27 AM EST Height - - Body Mass Index 34.98 12/07/2023 2:41 PM EST documented in this encounter Progress Notes * Diane Cuenca CRNP - 12/19/2023 7:42 AM EST 39w2d Good movement. Contractions on and off, increase in cramping. Declines cervical exam. No leaking/bleeding. Interested in membrane sweep next week. SIGRID Amaya documented in this encounter Plan of Treatment Upcoming Encounters Date Type Department Care Team (Late st Contact Info) Description 12/25/2023 3:30 PM EST Office Visit Gynecology/Obstetrics [facility] [address] [address] Ash Saha MD [address] [address] 01/01/2024 10:00 AM EST Imaging Radiology [facility] 2nd [facility] [address] [place] [address] 01/01/2024 11:15 AM EST Office Visit Gynecology/Obstetrics Marky Phan [address] [address] Backer, SIGRID Pop [address] [place] [address] Syl[place], Non Stress Tests David [address] [address] Health Maintenance Due Date Last Done Comments [...] high-risk documented in this encounter Care Teams Tank Builder And Erector Relationship Specialty Start Date End Date Constantin Roque MD [address] [place] [address] PCP - General Family Medicine 04/25/23 documented as of this encounter
--- OUTSIDE RECORDS SUMMARY | 2024-01-02 06:44 | External Medical Summary ---
Author Name Unknown Address Unknown Organization [id number]:[facility] - [facility] [address] [facility] [address] Laboratory Report Ordering Provider Test Date Status MARIA ELENA GARNETT 12/07/2023 14:56:53 Final Observation Date Value Abnormality Reference (Units ) Status Streptococcus agalactiae DNA [Presence] in Specimen by GUILLERMO with probe detection 12/07/2023 14:56:53 Negative Negative Final No Group B Streptococcus det ected by culture-enhanced PCR (amplified probe).
The collection of vaginal/rectal swab specimen combinations (FDA approved specimen type) is optimal for the detection of Group B Streptococcus. Single source collection (vaginal only or rectal only) or alternate specimen sources may lead to false negative results. Performing Location [facility]ORY [facility] - [address] [facility] [address]
--- OUTSIDE RECORDS SUMMARY | 2024-01-02 06:44 | External Medical Summary | Summary of Care ---
Author Name Unknown Organization [facility] Address [address] [place] [address] Phone [phone] Care Team Providers Care Precision Assembly Inspector Name Role Phone Constantin Roque MD Primary Care Provider + Reason for Visit * Reason Comments Return Visit Encounter Details Date Type Department Care Team (Late st Contact Info) Description 12/11/2023 8:30 AM EST Office Visit Gynecology/Obstetric s Marky Phan [address] [address] Diane Cuenca CRNP [address] [place] [address] Normal in third trimester*; Short interval between pregnancies complicating , antepartum Allergies Active Allergy Reactions Criticality Noted Date Comments Azithromycin 06/10/2022 Cephalexin Hives 06/10/2022 Penicillins Hives 06/10/2022 documented as of this encounter (statuses as of 12/11/2023) Medications Medication Sig Dispensed Refills Start Date End Date Status Flinshuan Gummies [place]-3 DHA Oral Tablet Chewable Take 2 Tablets [...] found 06/23/2022 09/21/2022 Overview: Transferred care from [place] and had NOB with [facility] on 06/23/22. She had pyelectasis and marginal cord insertion, which both resolved prior to transferring to [facility]. MFM referral placed. Last Assessment & [...] money to get more. Never true 08/10/2023 [place] Depression Scale Answer Date Recorded [place] Depression Scale Total 0 11/13/2023 The thought [...] Sign Reading Time Taken Comments Blood Pressure 112/66 12/11/2023 8:21 AM EST Pulse - - Temperature - - Respiratory Rate - - Oxygen Saturation - - Inhaled Oxygen Concentration - - Weight 83.5 kg (184 lb) 12/11/2023 8:21 AM EST Height - - Body Mass Index 34.79 12/07/2023 2:41 PM EST documented in this encounter Progress Notes * Diane Cuenca CRNP - 12/11/2023 8:24 AM EST 38w1d Denies bleeding/leaking or regular ctx. Good movement. Wishes to schedule 41 week appt - will add RAMESH and NST. 1 week return SIGRID Amaya * Deysi Akers LPN - 12/11/2023 8:22 AM EST 38w1d Denies vaginal bleeding/rom + movement Some contractions but nothing consistent documented in this encounter Plan of Treatment Upcoming Encounters Date Type Department Care Team (Late st Contact Info) Description 12/19/2023 7:30 AM EST Office Visit Gynecology/Obstetrics [facility] [address] [place] [address] Diane Cuenca CRNP [address] [address] 12/25/2023 3:30 PM EST Office Visit Gynecology/Obstetrics [facility] [address] [place] [address] Ash Saha MD [address] [place] [address] 01/01/2024 10:00 AM EST Imaging [facility] [address] [place] [address] Scheduled Orders Name Type Priority Associated Diagnoses Orde r Schedule US PREG LIMITED 1 OR MORE FETUSES Medical Imaging Routine Normal in third trimester Expected: 12/25/2023 (Approximate), Expires: 01/08/2025 Health Maintenance Due Date Last Done Comments [...] high-risk documented in this encounter Care Teams Precision Assembly Inspector Relationship Specialty Start Date End Date Constantin Roque MD [address] [address] PCP - General Family Medicine 04/25/23 documented as of this encounter
--- OUTSIDE RECORDS SUMMARY | 2024-01-02 06:44 | External Medical Summary ---
Author Name Unknown Address Unknown Organization K01:[facility] - [address] [facility] [address] Laboratory Report Ordering Provider Test Date Status JEFFRY MÁRQUEZ 11/27/2023 08:22:01 Final Observation Date Value Abnormality Reference (Units ) Status Streptococcus agalactiae DNA [Presence] in Specimen by GUILLERMO with probe detection 11/27/2023 08:22:01 Indeterminate. Repeat testing recommended. Abnormal Negative Final The collection of vaginal/re ctal swab specimen combinations (FDA approved specimen type) is optimal for the detection of Group B Streptococcus. Single source collection (vaginal only or rectal only) or alternate specimen sources may lead to false negative results. Performing Location [facility] - [address] [facility] [address]
--- OUTSIDE RECORDS SUMMARY | 2024-01-02 06:44 | External Medical Summary | Summary of Care ---
Author Name Unknown Organization [facility] Address [address] [place] [address] Phone [phone] Care Team Providers Care Analyst Food And Beverage Name Role Phone Constantin Roque MD Primary Care Provider + Reason for Visit * Reason Comments Return Visit Encounter Details Date Type Department Care Team (Late st Contact Info) Description 12/25/2023 3:30 PM EST [facility] [address] [place] [address] Ash Saha MD [address] [facility] [place] [address] Normal in third trimester*; Short interval between pregnancies complicating , antepartum Allergies Active Allergy Reactions Criticality Noted Date Comments Azithromycin 06/10/2022 Cephalexin Hives 06/10/2022 Penicillins Hives 06/10/2022 documented as of this encounter (statuses as of 12/25/2023) Medications Medication Sig Dispensed Refills Start Date End Date Status Jaquan Gummilowell [place]-3 DHA Oral Tablet Chewable Take 2 Tablets by mouth in the morning. 0 Active Breast PumpIndications:Breas t feeding status of mother Estimated Date of Delivery: 12/24/23, Z39.1, double electric pump to use as directed 1 Each 0 10/19/2023 Active documented as of this encounter (statuses as of 12/25/2023) Active Problems Problem Noted Date Diagnosed Date Normal 05/17/2023 Short interval between pregn ancies complicating , antepartum 05/17/2023 Overview: 09/2022 last delivery Pain of toe of right foot 02/09/2023 Toenail avulsion, initial encounter 02/09/2023 Estimated Date of Delivery Comme nts Yes 12/24/2023 Based on last me nstrual period of 03/19/2023 (Exact Date) documented as of this encounter (statuses as of 12/25/2023) Resolved Problems Problem Noted Date Diagnosed Date Resolved Date Normal 09/14/2022 10/05/2022 Abnormal ultrasonic finding on screening of mother 07/06/2022 09/14/2022 Overview: Previously seen pyelectasis. Last Assessment & Plan: kidneys are normal on today's ultrasound. Suspected placental problem not found 06/23/2022 09/21/2022 Overview: Transferred care from [place] and had NOB with [facility] on 06/23/22. She had pyelectasis and marginal cord insertion, which both resolved prior to transferring to [facility]. MFM referral placed. Last Assessment & Plan: Eccentric cord insertion into the placenta. Normal growth. No indication for additional monitoring. documented as of this encounter (statuses as of 12/25/2023) Immunizations Name Administration Dates Next Due Seasonal [...] money to get more. Never true 08/10/2023 [place] Depression Scale Answer Date Recorded [place] Depression Scale Total 0 11/13/2023 The thought [...] Sign Reading Time Taken Comments Blood Pressure 104/80 12/25/2023 3:42 PM EST Pulse - - Temperature - - Respiratory Rate - - Oxygen Saturation - - Inhaled Oxygen Concentration - - Weight 85.7 kg (189 lb) 12/25/2023 3:42 PM EST Height 154.9 cm (5' 0.98") 12/25/2023 3:42 PM ES T Body Mass Index 35.73 12/25/2023 3:42 PM EST documented in this encounter Progress Notes * Ash Saha MD - 12/25/2023 4:02 PM EST Pt doing well No complaints VE; cl/post/high Discussed induction documented in this encounter Nursing Notes * Janine Torres LPN - 12/25/2023 3:46 PM EST 40w1d Denies concerns. Would like cervical check, documented in this encounter Plan of Treatment Upcoming Encounters Date Type Department Care Team (Late st Contact Info) Description 01/01/2024 10:00 AM EST Imaging Radiology [facility] [place] [address] [place] [address] 01/01/2024 11:15 AM EST Office Visit Gynecology/Obstetrics [facility] [address] [place] [address] Backer, SIGRID Pop [address] [place] [address] Syl[place], Non Stress Tests David [address] [place] [address] Health Maintenance Due Date Last Done Comments Hepatitis B (1 of 3 - 19+ 3-dose series) 2014 COVID-19 Vaccine (2022-2 4 season) 2023 Depression Screening 10/27/2024 10/27/2023 [...] high-risk documented in this encounter Care Teams Analyst Food And Beverage Relationship Specialty Start Date End Date Constantin Roque MD [address] [place] [address] PCP - General Family Medicine 04/25/23 documented as of this encounter
--- OUTSIDE RECORDS SUMMARY | 2024-01-02 06:44 | External Medical Summary | Summary of Care ---
Author Name Unknown Organization [facility] Address [address] [place] [address] Phone [phone] Care Team Providers Care Infusion Rn Name Role Phone Constantin Roque MD Primary Care Provider + Reason for Visit * Reason Comments Return Visit Encounter Details Date Type Department Care Team (Late st Contact Info) Description 12/07/2023 3:15 PM EST Office Visit Gynecology/Obstetric [facility] [address] [facility] [place] [address] No Fung MD [address] [place] [phone] 37 weeks gestation of *; Normal in third trimester; Short interval between pregnancies complicating , antepartum Allergies Active Allergy Reactions Criticality Noted Date Comments Azithromycin 06/10/2022 Cephalexin Hives 06/10/2022 Penicillins Hives 06/10/2022 documented as of this encounter (statuses as of 12/07/2023) Medications Medication Sig Dispensed Refills Start Date End Date Status Flinstones Gummies [place]-3 DHA Oral Tablet Chewable Take 2 Tablets [...] found 06/23/2022 09/21/2022 Overview: Transferred care from [place] and had NOB with [facility] on 06/23/22. She had pyelectasis and marginal cord insertion, which both resolved prior to transferring to [facility]. MFM referral placed. Last Assessment & [...] money to get more. Never true 08/10/2023 [place] Depression Scale Answer Date Recorded [place] Depression Scale Total 0 11/13/2023 The thought [...] 37 FHT: 145 Cx: declined GBS collected Vacuum Metalizer Operator Documentation Provider requested information architect. Name of information architect: Nadir Kirby CLINICAL DOCUMENTATION CLERK Plan: Labor and preeclampsia warnings reviewed Family [...] 12/11/2023 8:30 AM EST Office Visit Gynecology/Obstetrics [facility] [address] [place] [address] Diane Cuenca CRNP [address] [place] [address] 12/22/2023 8:45 AM EST Office Visit Gynecology/Obstetrics [facility] [address] [employer] [address] [place] [address] Joi Goldman, DNP, CNM [address] [facility] [place] [id number] Pending Results Name Type Priority Associated Diagnoses [...] high-risk documented in this encounter Care Teams Infusion Rn Relationship Specialty Start Date End Date Constantin Roque MD [address] [address] PCP - General Family Medicine 04/25/23 documented as of this encounter
--- OUTSIDE RECORDS SUMMARY | 2024-01-02 06:44 | External Medical Summary | Summary of Care ---
Author Name Unknown Organization [facility] Address [address] [place] [address] Phone [phone] Care Team Providers Care Mail Teller Name Role Phone Constantin Roque MD Primary Care Provider + Reason for Visit * Reason Onset Date Comments Test Results 12/11/2023 Encounter Details Date Type Department Care Team (Late st Contact Info) Description 12/11/2023 Telephone Gynecology/Obstetrics [facility] [address] [place] [address] No Fung MD [address] [place] [address] Test Results Allergies Active Allergy Reactions Criticality Noted Date Comments Azithromycin 06/10/2022 Cephalexin Hives 06/10/2022 Penicillins Hives 06/10/2022 documented as of this encounter (statuses as of 12/11/2023) Medications Medication Sig Dispensed Refills Start Date End Date Status Flinshuan Gummies [place]-3 DHA Oral Tablet Chewable Take 2 Tablets [...] found 06/23/2022 09/21/2022 Overview: Transferred care from [place] and had NOB with [facility] on 06/23/22. She had pyelectasis and marginal cord insertion, which both resolved prior to transferring to [facility]. MFM referral placed. Last Assessment & Plan: [...] money to get more. Never true 08/10/2023 [place] Depression Scale Answer Date Recorded [place] Depression Scale Total 0 11/13/2023 The thought of harming myself has occurred to me . Never 11/13/2023 Estimated Date of Delivery Comme nts Yes 12/24/2023 Based on last me nstrual period of 03/19/2023 (Exact Date) Sex and Gender Information Value Date Recorded Sex Assigned at Female 06/23/2022 9:13 AM EDT Gender Identity Female 06/23/2022 9:13 AM EDT Sexual Orientation Straight 06/23/2022 9 :13 AM EDT Job Start Date Occupation Industry Not on file Not on file Not on file documented as of this encounter Miscellaneous Notes * Telephone Encounter - Linda Rivera RN - 12/11/2023 8:21 AM EST Pt is aware. * Telephone Encounter - Deanna Sanders LPN [...] 8:30 AM EST Office Visit Gynecology/Obstetric s [facility] [address] [address] Diane Cuenca CRNP [address] [address] Normal in third trimester*; Short interval between pregnancies complicating , antepartum 12/22/2023 8:45 AM EST Office Visit Gynecology/Obstetric s Marky Phan [address] [address] Joi Goldman, DNP, CNM [address] [address] Health Maintenance Due Date Last Done Comments [...] filedocumented as of this encounter Care Teams Mail Teller Relationship Specialty Start Date End Date Constantin Roque MD [address] [address] PCP - General Family Medicine 04/25/23 documented as of this encounter
--- OUTSIDE RECORDS SUMMARY | 2024-01-02 06:45 | External Medical Summary | Summary of Care ---
Author Name Unknown Organization [facility] Address [address] [place] [address] Phone [phone] Care Team Providers Care Brass Cleaner Name Role Phone Constantin Roque MD Primary Care Provider + Reason for Visit * Reason Comments Return Visit Encounter Details Date Type Department Care Team (Late st Contact Info) Description 10/19/2023 8:15 AM EST Office Visit Gynecology/Obstetric s Marky Phan [address] [place] [address] Diane Cuenca CRNP [address] [place] [address] Normal in third trimester*; Short interval between pregnancies complicating , antepartum; Breast feeding status of mother Allergies Active Allergy Reactions Criticality Noted Date Comments Azithromycin 06/10/2022 Cephalexin Hives 06/10/2022 Penicillins Hives 06/10/2022 documented as of this encounter (statuses as of 10/19/2023) Medications Medication Sig Dispensed Refills Start Date End Date Status Flinshuan Gummies [place]-3 DHA Oral Tablet Chewable Take 2 Tablets by mouth in the morning. 0 Active Breast PumpIndications:Breas t feeding status of mother Estimated Date of Delivery: 12/24/23, Z39.1, double electric pump to use as directed 1 Each 0 10/19/2023 Active documented as of this encounter (statuses as of 10/19/2023) Active Problems Problem Noted Date Diagnosed Date Normal 05/17/2023 Short interval between pregn ancies complicating , antepartum 05/17/2023 Overview: 09/2022 last delivery Pain of toe of right foot 02/09/2023 Toenail avulsion, initial encounter 02/09/2023 Estimated Date of Delivery Comme nts Yes 12/24/2023 Based on last me nstrual period of 03/19/2023 (Exact Date) documented as of this encounter (statuses as of 10/19/2023) Resolved Problems Problem Noted Date Diagnosed Date Resolved Date Normal 09/14/2022 10/05/2022 Abnormal ultrasonic finding on screening of mother 07/06/2022 09/14/2022 Overview: Previously seen pyelectasis. Last Assessment & Plan: kidneys are normal on today's ultrasound. Suspected placental problem not found 06/23/2022 09/21/2022 Overview: Transferred care from [place] and had NOB with [facility] on 06/23/22. She had pyelectasis and marginal cord insertion, which both resolved prior to transferring to [facility]. MFM referral placed. Last Assessment & Plan: Eccentric cord insertion into the placenta. Normal growth. No indication for additional monitoring. documented as of this encounter (statuses as of 10/19/2023) Immunizations Name Administration Dates Next Due Seasonal [...] Date Recorded PHQ Adult Total Score 0 07/06/2022 Hunger Vital Sign Answer Date Recorded Within the past 12 months, y ou worried that your food would run out before you got the money to buy more. Never true 08/10/20 23 Within the past 12 months, t he food you bought just didn't last and you didn't have money to get more. Never true 08/10/2023 [place] Depression Scale Answer Date Recorded [place] Depression Scale Total 0 10/06/2023 The thought of harming myself has occurred to me . Never 10/06/2023 Estimated Date of Delivery Comme nts Yes [...] Sign Reading Time Taken Comments Blood Pressure 104/62 10/19/2023 8:09 AM EST Pulse - - Temperature - - Respiratory Rate - - Oxygen Saturation - - Inhaled Oxygen Concentration - - Weight 76.7 kg (169 lb) 10/19/2023 8:09 AM EST Height - - Body Mass Index 31.93 10/06/2023 11:06 AM EST documented in this encounter Progress Notes * Diane Cuenca CRNP - 10/19/2023 8:13 AM EST 30w4d No concerns. Baby is active. No regular ctx, bleeding. Breast pump rx given. Reviewed FKC and labor precautions. 2 week return SIGRID Amaya * Deysi Akers LPN - 10/19/2023 8:10 AM EST 30w4d Denies vaginal bleeding/rom + movement Breast pump script documented in this encounter Plan of Treatment Upcoming Encounters Date Type Department Care Team (Late st Contact Info) Description 10/27/2023 4:40 PM EST Office Visit Family [facility] [address] [place] [address] Annalisa Mayer CRNP [address] [place] [address] 11/01/2023 8:15 AM EST Office Visit Gynecology/Obstetrics [facility] [address] [facility] [place] [address] Sara Taylor CRNP [address] [place] [address] 11/13/2023 8:30 AM EST Office Visit Gynecology/Obstetrics [facility] [address] [facility] [place] [address] Vale Chappell, [facility] [address] [place] [address] 11/14/2023 4:15 PM EST Office Visit [facility]atology [facility] [address] [place] [address] Darrick Crum MD [address] [place] [address] Elizabeth Washington V Beam [address] [place] [address] 11/27/2023 8:00 AM EST Office Visit Gynecology/Obstetrics [facility] [address] [facility] [place] [address] Sara Taylor CRNP [address] [place] [address] 12/04/2023 8:30 AM EST Office Visit Gynecology/Obstetrics [facility] [address] [place] [address] Diane Cuenca CRNP [address] [place] [address] 12/13/2023 9:30 AM EST Office Visit Gynecology/Obstetrics [facility] [address] [place] [address] Sara Taylor CRNP [address] [place] [address] 12/22/2023 8:45 AM EST Office Visit Gynecology/Obstetrics [facility] [address] [place] [address] Joi Goldman, [facility] [address] [facility] [place] [address] Health Maintenance Due Date Last Done Comments Hepatitis B (1 of 3 - 3-dose series) 1995 COVID-19 Vaccine (#1) 1995 Depression Screening 07/06/2023 07/06/2022 Pap Smear 12/12/2025 12/12/2022 DTaP,Tdap,and Td Vaccines [...] complicating , antepartum Supervision of other high-risk Breast feeding status of mother care and examination of lactating mother documented in this encounter Care Teams Brass Cleaner Relationship Specialty Start Date End Date Constantin Roque MD [address] [place] [address] PCP - General Family Medicine 04/25/23 documented as of this encounter
--- OUTSIDE RECORDS SUMMARY | 2024-01-02 06:45 | External Medical Summary | Summary of Care ---
Author Name Unknown Organization [facility] Address [address] [place] [address] Phone [phone] Care Team Providers Care Fence Maker Name Role Phone Constantin Roque MD Primary Care Provider + Reason for Visit * Reason Comments Return Visit Encounter Details Date Type Department Care Team (Late st Contact Info) Description 11/13/2023 8:30 AM EST Office Visit Gynecology/Obstetric [facility] [address] [place] [address] Vale Chappell, [place] [address] [place] [address] Normal in third trimester*; Short interval between pregnancies complicating , antepartum Allergies Active Allergy Reactions Criticality Noted Date Comments Azithromycin 06/10/2022 Cephalexin Hives 06/10/2022 Penicillins Hives 06/10/2022 documented as of this encounter (statuses as of 11/13/2023) Medications Medication Sig Dispensed Refills Start Date End Date Status Jaquan G[place]-3 DHA Oral Tablet Chewable Take 2 Tablets by mouth in the morning. 0 Active Breast PumpIndications:Breas t feeding status of mother Estimated Date of Delivery: 12/24/23, Z39.1, double electric pump to use as directed 1 Each 0 10/19/2023 Active documented as of this encounter (statuses as of 11/13/2023) Active Problems Problem Noted Date Diagnosed Date Normal 05/17/2023 Short interval between pregn ancies complicating , antepartum 05/17/2023 Overview: 09/2022 last delivery Pain of toe of right foot 02/09/2023 Toenail avulsion, initial encounter 02/09/2023 Estimated Date of Delivery Comme nts Yes 12/24/2023 Based on last me nstrual period of 03/19/2023 (Exact Date) documented as of this encounter (statuses as of 11/13/2023) Resolved Problems Problem Noted Date Diagnosed Date Resolved Date Normal 09/14/2022 10/05/2022 Abnormal ultrasonic finding on screening of mother 07/06/2022 09/14/2022 Overview: Previously seen pyelectasis. Last Assessment & Plan: kidneys are normal on today's ultrasound. Suspected placental problem not found 06/23/2022 09/21/2022 Overview: Transferred care from [place] and had NOB with [facility] on 06/23/22. She had pyelectasis and marginal cord insertion, which both resolved prior to transferring to [facility]. MFM referral placed. Last Assessment & Plan: Eccentric cord insertion into the placenta. Normal growth. No indication for additional monitoring. documented as of this encounter (statuses as of 11/13/2023) Immunizations Name Administration Dates Next Due Seasonal [...] money to get more. Never true 08/10/2023 [place] Depression Scale Answer Date Recorded [place] Depression Scale Total 0 11/13/2023 The thought [...] Reading Time Taken Comments Blood Pressure 100/62 11/13/2023 8:20 AM EST Pulse - - Temperature - - Respiratory Rate - - Oxygen Saturation - - Inhaled Oxygen Concentration - - Weight 79.9 kg (176 lb 3.2 oz) 11/13/2023 8:20 A M EST Height - - Body Mass Index 33.31 11/01/2023 8:00 AM EST documented in this encounter Progress Notes * Vale Chappell CNM - 11/13/2023 8:29 AM EST Stella Arauz is a 28 year old female here for her routine OB appointment at 34w1d Her Estimated Date of Delivery: 12/24/23 REVIEW OF SYSTEMS: She affirms movement. Denies vaginal bleeding, LOF, N/V, headaches, vision changes, and RUQ pain. Had watery discharge last week, which resolved. States she does not think her water broke. A few contractions here and there but no consistent pattern. [place] Depression Scale: [place] Depression Scale Total: 0 [place] suicide question and score: Score of 3 = Yes, quite often. Score of 2 = Sometimes. Score of 1 = Hardly ever The thought of harming myself has occurred to me.: 0 PHYSICAL EXAM: Filed Vitals: 11/13/23 0820 BP: 100/62 Weight: 79.9 kg (176 lb 3.2 oz) +FHT 140-150bpm Fundal height: 33cm ASSESSMENT/PLAN: (O09.899) Short interval between pregnancies complicating , antepartum (Z34.93) Normal in third trimester (primary encounter diagnosis) Plan: -recommended RSV vaccine between 32w and 36w6d. Discussed risk of labor. Discussed limited availability of RSV vaccine for children. Patient politely declines maternal RSV vaccine. - discussed GBS and to expect swab to be completed at next visit - position uncertain; recommended Spinning Babies exercises; consider ultrasound at next visitif position remains uncertain - labor precautions and kick counts reviewed - RTO in 2 weeks Vale Chappell CNM documented in this encounter Nursing Notes * Deanna Sanders LPN - 11/13/2023 8:24 AM EST Pt is currently 34w1d with an Estimated Date of Delivery: 12/24/23 - Doing well without complaints. documented in this encounter Plan of Treatment Upcoming Encounters Date Type Department Care Team (Late st Contact Info) Description 11/14/2023 4:15 PM EST Office Visit Dermatology [facility] [place] [address] [place] [address] Darrick Crum MD [address] [place] [address] Sp, Pulse Dye V Beam [address] [facility] [place] [address] 11/27/2023 8:00 AM EST [facility] [place] [address] Sara Taylor CRNP [address] [place] [address] 12/04/2023 8:30 AM EST Office [facility] [address] [place] [address] Diane Cuenca CRNP [address] [place] [address] 12/11/2023 8:30 AM EST Office Visit Gynecology/Obstetrics [facility]y Pereiras [address] [place] [address] Diane Cuenca CRNP [address] [place] [address] 12/22/2023 8:45 AM EST Office Visit Gynecology/Obstetrics [facility]y [facility] [address] Joi Goldman, [address] [place] [address] Health Maintenance Due Date Last Done Comments [...] high-risk documented in this encounter Care Teams Fence Maker Relationship Specialty Start Date End Date Constantin Roque MD [address] [place] [address] PCP - General Family Medicine 04/25/23 documented as of this encounter
--- OUTSIDE RECORDS SUMMARY | 2024-01-02 06:45 | External Medical Summary ---
Author Name Unknown Address Unknown Organization K01:[facility] [place] [address] [facility] [address] Laboratory Report Ordering Provider Test Date Status GOYO WAGONER 10/06/2023 12:11:44 Final Observation Date Value Abnormality Reference (Units ) Status Treponema pallidum Ab [Presence] in Serum by Immunoassay 10/06/2023 12:11:44 Nonreactive Nonreactive Final No serologic evidence of syp hilis. No additional testing clinicially indicated at this time. Consider repeat testing in 2-4 weeks if acute or primary syphilis is suspected. Performing Location [facility] [place] [address] [place] [address]
--- OUTSIDE RECORDS SUMMARY | 2024-01-02 06:45 | External Medical Summary | Summary of Care ---
Author Name Unknown Organization [facility] Address [address] [place] [facility] [place] [address] Phone [phone] Care Team Providers Care Supervisor [employer] Name Role Phone Constantin Roque MD Primary Care Provider + Reason for Visit * Reason Comments Return Visit Encounter Details Date Type Department Care Team (Late st Contact Info) Description 10/06/2023 11:30 AM EST Office Visit Gynecology/Obstetric s Marky Phan [address] [place] [address] Mei Campbell PA-C [address] [place] [address] Normal in third trimester*; Short interval between pregnancies complicating , antepartum; Need for uordddubki-guiffup-wv rtussis (Tdap) vaccine Allergies Active Allergy Reactions Criticality Noted Date Comments Azithromycin 06/10/2022 Cephalexin Hives 06/10/2022 Penicillins Hives 06/10/2022 documented as of this encounter (statuses as of 10/06/2023) Medications Medication Sig Dispensed Refills Start Date End Date Status Flinstones Gummies [place]-3 DHA Oral Tablet Chewable Take 2 Tablets by mouth in the morning. 0 Active documented as of this encounter (statuses as of 10/06/2023) Active Problems Problem Noted Date Diagnosed Date Normal 05/17/2023 Short interval between pregn ancies complicating , antepartum 05/17/2023 Overview: 09/2022 last delivery Pain of toe of right foot 02/09/2023 Toenail avulsion, initial encounter 02/09/2023 Estimated Date of Delivery Comme nts Yes 12/24/2023 Based on last me nstrual period of 03/19/2023 (Exact Date) documented as of this encounter (statuses as of 10/06/2023) Resolved Problems Problem Noted Date Diagnosed Date Resolved Date Normal 09/14/2022 10/05/2022 Abnormal ultrasonic finding on screening of mother 07/06/2022 09/14/2022 Overview: Previously seen pyelectasis. Last Assessment & Plan: kidneys are normal on today's ultrasound. Suspected placental problem not found 06/23/2022 09/21/2022 Overview: Transferred care from [place] and had NOB with [facility] on 06/23/22. She had pyelectasis and marginal cord insertion, which both resolved prior to transferring to [facility]. MFM referral placed. Last Assessment & Plan: Eccentric cord insertion into the placenta. Normal growth. No indication for additional monitoring. documented as of this encounter (statuses as of 10/06/2023) Immunizations Name Administration Dates Next Due SEASONAL INFLUENZA, PF, 6 M & Above, IM , (FLULAVAL or FLUZONE) 09/20/2023,07/22/2022 TDAP (age 10 and older)(Boostrix) 10/06/2023, [...] money to get more. Never true 08/10/2023 [place] Depression Scale Answer Date Recorded [place] Depression Scale Total 0 10/06/2023 The thought [...] Sign Reading Time Taken Comments Blood Pressure 102/64 10/06/2023 11:06 AM EST Pulse - - Temperature - - Respiratory Rate - - Oxygen Saturation - - Inhaled Oxygen Concentration - - Weight 75.8 kg (167 lb) 10/06/2023 11:06 AM EST Height 154.9 cm (5' 1") 10/06/2023 11:06 AM EST Body Mass Index 31.55 10/06/2023 11:06 AM EST documented in this encounter Progress Notes * Mei Campbell PA-C - 10/06/2023 11:28 AM EST 28w5d Doing well. Increase in R sciatic nerve pain. Reviewed stretching, comfort measures. Completing Fresh Test today. Accepts TDaP, given. RTC in 2 weeks Mei Campbell PA-C * Janine Torres LPN - 10/06/2023 11:18 AM EST 28w4d Completing labs today, fresh test. Would like tdap. Denies concerns. documented in this encounter Nursing Notes * Janine Torres LPN - 10/06/2023 11:31 AM EST Patient here for tdap injection. Patient doing well no complaints. Injection given IM as ordered. Patient tolerated well. Patient to follow up as directed. Patient instructed to call if any complications. Patient verbalized understanding of instructions given and her follow up appt for TEA Injection site: Left Deltoid Medication Source: Dispensed stock medication documented in this encounter Plan of Treatment Upcoming Encounters Date Type Department Care Team (Late st Contact Info) Description 11/01/2023 8:15 AM EST Office Visit Gynecology/Obstetrics [facility] [address] [facility] [place] [address] Sara Taylor CRNP [address] [place] [address] 11/13/2023 8:30 AM EST Office Visit Gynecology/Obstetrics [address] [place] [address] Vale Chappell, [facility] [address] [place] [address] 11/14/2023 4:15 PM EST Office Visit Dermatology [facility] [address] [facility] [place] [place] [address] Darrick Crum MD [address] [facility] [place] [place] [address] Sp, Pulse Dye V Beam [address] [facility] [place] [place] [place] [address] 11/27/2023 8:00 AM EST Office Visit Gynecology/Obstetrics [facility] [address] [facility] [place] [address] Sara Taylor CRNP [address] [place] [address] 12/04/2023 8:30 AM EST Office Visit Gynecology/Obstetrics [facility] [address] [facility] [place] [address] Diane Cuenca CRNP [address] [place] [address] 12/13/2023 9:30 AM EST Office Visit Gynecology/Obstetrics [facility] [address] [facility] [place] [address] Sara Taylor CRNP [address] [place] [address] 12/22/2023 8:45 AM EST Office Visit Gynecology/Obstetrics [facility] [address] [facility] [place] [address] Joi Goldman, [facility] [address] [facility] [place] [address] Health Maintenance Due Date Last Done Comments [...] complicating , antepartum Supervision of other high-risk Need for drzrkalzqt-rhzuvmh-ejhfmtmgl (Tdap) vaccine Need for prophylactic vaccination with combined dchzhdefld-zldjhca-ylevvzllt (DTP) vaccine documented in this encounter Care Teams Supervisor [employer] Relationship Specialty Start Date End Date Constantin Roque MD [address] [place] [address] PCP - General Family Medicine 04/25/23 documented as of this encounter
--- OUTSIDE RECORDS SUMMARY | 2024-01-02 06:45 | External Medical Summary | Summary of Care ---
Author Name Unknown Organization [facility] Address [address] [place] [address] Phone [phone] Care Team Providers Care Sales Representative Womens Health Name Role Phone Constantin Roque MD Primary Care Provider + Reason for Visit * Reason Comments Physical-Exam Pt here for annual C PE Encounter Details Date Type Department Care Team (Late st Contact Info) Description 10/27/2023 4:40 PM EST Office Visit Family Practice [facility] [address] [place] [address] Annalisa Mayer CRNP [address] [place] [address] Well adult exam*; Screening for lipid disorders Allergies Active Allergy Reactions Criticality Noted Date Comments Azithromycin 06/10/2022 Cephalexin Hives 06/10/2022 Penicillins Hives 06/10/2022 documented as of this encounter (statuses as of 10/27/2023) Medications Medication Sig Dispensed Refills Start Date End Date Status Jaquan Rodriguez Furman-3 DHA Oral Tablet Chewable Take 2 Tablets by mouth in the morning. 0 Active Breast PumpIndications:Breas t feeding status of mother Estimated Date of Delivery: 12/24/23, Z39.1, double electric pump to use as directed 1 Each 0 10/19/2023 Active documented as of this encounter (statuses as of 10/27/2023) Active Problems Problem Noted Date Diagnosed Date Normal 05/17/2023 Short interval between pregn ancies complicating , antepartum 05/17/2023 Overview: 09/2022 last delivery Pain of toe of right foot 02/09/2023 Toenail avulsion, initial encounter 02/09/2023 Estimated Date of Delivery Comme nts Yes 12/24/2023 Based on last me nstrual period of 03/19/2023 (Exact Date) documented as of this encounter (statuses as of 10/27/2023) Resolved Problems Problem Noted Date Diagnosed Date Resolved Date Normal 09/14/2022 10/05/2022 Abnormal ultrasonic finding on screening of mother 07/06/2022 09/14/2022 Overview: Previously seen pyelectasis. Last Assessment & Plan: kidneys are normal on today's ultrasound. Suspected placental problem not found 06/23/2022 09/21/2022 Overview: Transferred care from [place] and had NOB with [facility] on 06/23/22. She had pyelectasis and marginal cord insertion, which both resolved prior to transferring to [facility]. MFM referral placed. Last Assessment & Plan: Eccentric cord insertion into the placenta. Normal growth. No indication for additional monitoring. documented as of this encounter (statuses as of 10/27/2023) Immunizations Name Administration Dates Next Due Seasonal Influenza, PF, 6 M & above, IM , (FluLaval or Fluzone) 09/20/2023,07/22/2022 TDAP (age 10 and older)(Boostrix) 10/06/2023, documented as of this encounter Social History Tobacco Use Types Packs/Day Years Used Date Smoking Tobacco: Never Passive Smoke Exposure: Never Smokeless Tobacco: Never Tobacco Cessation:Counseling Given: Not Answered Alcohol Use Standard Drinks/Week Comments Not Currently [...] money to get more. Never true 08/10/2023 [place] Depression Scale Answer Date Recorded [place] Depression Scale Total 0 10/06/2023 The thought [...] Sign Reading Time Taken Comments Blood Pressure 108/70 10/27/2023 4:03 PM EST Pulse 88 10/27/2023 4:03 PM EST Temperature 36.6 C (97.8 F) 10/27/2023 4:03 PM ES T Respiratory Rate 16 10/27/2023 4:03 PM EST Oxygen Saturation 98% 10/27/2023 4:03 PM EST Inhaled Oxygen Concentration - - Weight 76.7 kg (169 lb) 10/27/2023 4:03 PM EST Height 154.9 cm (5' 0.98") 10/27/2023 4:03 PM ES T Body Mass Index 31.95 10/27/2023 4:03 PM EST documented in this encounter Progress Notes * Annalisa Mayer CRNP - 10/27/2023 4:36 PM EST Images from the original note were not included. Follow up Family Medicine Visit History of Present Illness Stella Arauz is a very pleasant 28 year old female with PMH listed below presenting with physical exam. Currently 32 wks with second baby, normal No fever, chills, chest pain, shortness of breath, headache, nausea, vomit, diarrhea, constipation or vision changes Social History Socioeconomic History Marital status: Spouse name: Not on file Number of children: Not on file Years of education: Not on file Highest education level: Not on file Occupational History Occupation: stay at home. Tobacco Use Smoking status: Never Passive exposure: Never Smokeless tobacco: Never Substance and Sexual Activity Alcohol use: Not Currently Drug use: Never Sexual activity: Yes Partners: Male Other Topics Concern Not on file Social History Narrative in Here for school Likes reading, baking, walks. Social Determinants of Health Financial Resource Strain: Not on file Food Insecurity: No Food Insecurity (08/10/2023) Hunger Vital Sign Worried About Running Out of Food in the Last Year: Never true Ran Out of Food in the Last Year: Never true Transportation Needs: Not on file Physical Activity: Not on file Stress: Not on file Social Connections: Not on file Intimate Partner Violence: Not on file Housing Stability: Not on file PMH: No past medical history on file. Past Surgical History: Procedure Laterality Date DENTAL SURGERY PROCEDURE NEC Outpatient Medications Marked as Taking for the 10/27/23 encounter (Office Visit) with Annalisa Mayer CRNP Medication Sig Breast Pump Estimated Date of Delivery: 12/24/23, Z39.1, double electric pump to use as directed Jaquan Rodriguez Furman-3 DHA Oral Tablet Chewable Take 2 Tablets by mouth in the morning. Review of patient's allergies indicates: Allergen Reactions Azithromycin Cephalexin Hives Penicillins Hives Most Recent Immunizations Administered Date(s) Administered Seasonal Influenza, PF, 6 M & above, IM , (FluLaval or Fluzone) 09/20/2023 TDAP (age 10 and older)(Boostrix) 10/06/2023 Review of Systems: Physical Exam BP 108/70 (BP Site: Left Arm, BP Position: Sitting, BP Cuff Size: Regular) | Pulse 88 | Temp 36.6 C (97.8 F) (Tympanic) | Resp 16 | Ht 1.549 m (5' 0.98") | Wt 76.7 kg (169 lb) | LMP 03/19/2023 (Exact Date) | SpO2 98% | BMI 31.95 kg/m | BSA 1.82 m Physical Exam Constitutional: Appearance: Normal appearance. She is well-developed and well-groomed. HENT: Head: Normocephalic. Right Ear: Tympanic membrane, ear canal and external ear normal. Left Ear: Tympanic membrane, ear canal and external ear normal. Nose: Nose normal. Mouth/Throat: Mouth: Mucous membranes are moist. Pharynx: Oropharynx is clear. Eyes: Extraocular Movements: Extraocular movements intact. Conjunctiva/sclera: Conjunctivae normal. Pupils: Pupils are equal, round, and reactive to light. Cardiovascular: Rate and Rhythm: Normal rate and regular rhythm. Pulses: Normal pulses. Heart sounds: Normal heart sounds. Pulmonary: Effort: Pulmonary effort is normal. Breath sounds: Normal breath sounds. Abdominal: General: Bowel sounds are normal. Palpations: Abdomen is soft. Musculoskeletal: General: Normal range of motion. Cervical back: Normal range of motion. Skin: General: Skin is warm and dry. Capillary Refill: Capillary refill takes less than 2 seconds. Neurological: General: No focal deficit present. Mental Status: She is alert. Psychiatric: Mood and Affect: Mood normal. Assessment and Plan 1. Well adult exam Discussed HM topics GDM screening negative 2. Screening for lipid disorders After delivery - LIPID PANEL WITH DIRECT LDL IF TG IS HIGH; Future Wrap-Up I have advised the patient to call our office with any worsening or new symptoms. I spent a total of 20-29 minutes (exact time 25 mins) on the date of service in preparation, delivery, and documentation of the care provided to Stella Arauz excluding any time spent in the performance of separately billed services. HOLLIE Cisneros, SIGRID [facility] documented in this encounter Plan of Treatment Upcoming Encounters Date Type Department Care Team (Late st Contact Info) Description 11/01/2023 8:15 AM EST Office Visit Gynecology/Obstetrics [address] [place] [address] Sara Taylor CRNP [address] [place] [address] 11/13/2023 8:30 AM EST Office Visit Gynecology/Obstetrics [facility] [address] [facility] [place] [address] Vale Chappell, PALLAVI [address] [place] [address] [place] [address] 11/14/2023 4:15 PM EST Office Visit Dermatology [facility] [address] [place] [address] Darrick Crum MD [address] [place] [address] Sp, Pulse Dye V Beam [address] [place] [address] 11/27/2023 8:00 AM EST Office Visit Gynecology/Obstetrics [facility] [address] [place] [address] Sara Taylor CRNP [address] [place] [address] 12/04/2023 8:30 AM EST Office Visit Gynecology/Obstetrics [facility] [address] [place] [address] Diane Cuenca CRNP [address] [place] [address] 12/13/2023 9:30 AM EST Office Visit Gynecology/Obstetrics [facility] [address] [place] [address] Sara Taylor CRNP [address] [place] [address] 12/22/2023 8:45 AM EST Office Visit Gynecology/Obstetrics [facility] [address] [place] [address] Joi Goldman, [facility] [address] [place] [address] Scheduled Orders Name Type Priority Associated Diagnoses Orde r Schedule LIPID PANEL WITH DIRECT LDL IF TG IS HIGH Lab Routine Screening for lipid disorders Expected: 10/27/2023, Expires: 10/27/2024 Health Maintenance Due Date Last Done Comments Hepatitis B (1 of 3 - 3-dose series) 1995 COVID-19 Vaccine (#1) 1995 Depression Screening 07/06/2023 10/27/2023 Pap Smear 12/12/2025 12/12/2022 DTaP,Tdap,and Td [...] as of this encounter Visit Diagnoses Diagnosis Well adult exam- Primary Routine general medical examination at a health care facility Screening for lipid disorders documented in this encounter Care Teams Sales Representative Womens Health Relationship Specialty Start Date End Date Constantin Roque MD [address] [facility] [place] [address] PCP - General Family Medicine 04/25/23 documented as of this encounter
--- OUTSIDE RECORDS SUMMARY | 2024-01-02 06:45 | External Medical Summary | Summary of Care ---
Author Name Unknown Organization [facility] Address [address] [place] [address] Phone [phone] Care Team Providers Care Filemaker Developer Name Role Phone Constantin Roque MD Primary Care Provider + Reason for Visit * Reason Comments Laser Procedure Patient here for las er for a wart on her foot. She says it's helping, wart is getting smaller. Encounter Details Date Type Department Care Team (Late st Contact Info) Description 11/14/2023 4:15 PM EST Office Visit Dermatology [facility] [place] [address] [facility] [place] [address] Darrick Crum MD [address] [facility] [place] [address] Sp, Pulse Dye V Beam [address] [facility] [place] [address] Plantar wart of left foot [B07.0]*; Other viral warts Allergies Active Allergy Reactions Criticality Noted Date Comments Azithromycin 06/10/2022 Cephalexin Hives 06/10/2022 Penicillins Hives 06/10/2022 documented as of this encounter (statuses as of 11/14/2023) Medications Medication Sig Dispensed Refills Start Date End Date Status Jaquan Rodriguez Montezuma-3 DHA Oral Tablet Chewable Take 2 Tablets by mouth in the morning. 0 Active Breast PumpIndications:Breas t feeding status of mother Estimated Date of Delivery: 12/24/23, Z39.1, double electric pump to use as directed 1 Each 0 10/19/2023 Active documented as of this encounter (statuses as of 11/14/2023) Active Problems Problem Noted Date Diagnosed Date Normal 05/17/2023 Short interval between pregn ancies complicating , antepartum 05/17/2023 Overview: 09/2022 last delivery Pain of toe of right foot 02/09/2023 Toenail avulsion, initial encounter 02/09/2023 Estimated Date of Delivery Comme nts Yes 12/24/2023 Based on last me nstrual period of 03/19/2023 (Exact Date) documented as of this encounter (statuses as of 11/14/2023) Resolved Problems Problem Noted Date Diagnosed Date Resolved Date Normal 09/14/2022 10/05/2022 Abnormal ultrasonic finding on screening of mother 07/06/2022 09/14/2022 Overview: Previously seen pyelectasis. Last Assessment & Plan: kidneys are normal on today's ultrasound. Suspected placental problem not found 06/23/2022 09/21/2022 Overview: Transferred care from [place] and had NOB with [facility] on 06/23/22. She had pyelectasis and marginal cord insertion, which both resolved prior to transferring to [facility]. MFM referral placed. Last Assessment & Plan: Eccentric cord insertion into the placenta. Normal growth. No indication for additional monitoring. documented as of this encounter (statuses as of 11/14/2023) Immunizations Name Administration Dates Next Due Seasonal [...] money to get more. Never true 08/10/2023 [place] Depression Scale Answer Date Recorded [place] Depression Scale Total 0 11/13/2023 The thought [...] on file documented as of this encounter Progress Notes * Darrick Crum MD - 11/14/2023 4:34 PM EST S: Stella Arauz is a 28 year old female for follow up on warts. Last treated 6 week(s) ago withPDL and duct tape by Dr. Shaffer. Treatment has resulted in partial clearing. Other skin complaints today: no Current Outpatient Medications Medication Sig Dispense Refill Flinstones Gummies Montezuma-3 DHA Oral Tablet Chewable Take 2 Tablets by mouth in the morning. Breast Pump Estimated Date of Delivery: 12/24/23, Z39.1, double electric pump to use as directed 1 Each 0 No current facility-administered medications for this visit. Review of patient's allergies indicates: Allergen Reactions Azithromycin Cephalexin Hives Penicillins Hives Patient Active Problem List Diagnosis Code Pain of toe of right foot M79.674 Toenail avulsion, initial encounter S91.209A Normal Z34.90 Short interval between pregnancies complicating , antepartum O09.899 O: L heel and upper plantar - verrucal papules, fewer than last visit A: Verruca P: 1. Pulse dye laser treatment 595nm today - Discussed lack of safety data in use in , but no reason to believe this would be unsafe in The procedure, risks, benefits, alternatives and expected outcomes were discussed with the patient and verbal consent was obtained. Time out called. Patient identified, procedure verified, site identified and verified. Patient and staff present in agreement. Eye protection placed. Laser surgery was performed with 595nm PDL using 7 mm spot size with 1.5 pulse width and 15 Joules of energy number of pulses 12. Patient instructed in routine post-op care. *pt , no yeny acid for now, occlusion with duct tape or duoderm when possible Follow up: PRN Darrick Crum MD documented in this encounter Nursing Notes * Batsheva Arechiga LPN - 11/14/2023 4:01 PM EST Pt here for laser tx for plantar wart Procedure explained. All questions answered. Consent reviewed and signed. Areas to be treated washed with soap and water Tolerated tx well Post treatment instructions given documented in this encounter Plan of Treatment Upcoming Encounters Date Type Department Care Team (Late st Contact Info) Description 11/27/2023 8:00 AM EST Office Visit Gynecology/Obstetrics [facility] [address] [place] [address] Sara Taylor CRNP [address] [place] [address] 12/04/2023 8:30 AM EST Office Visit Gynecology/Obstetrics [facility] [address] [place] [address] Diane Cuenca CRNP [address] [place] [address] 12/11/2023 8:30 AM EST Office Visit Gynecology/Obstetrics [facility] [address] [place] [address] Diane Cuenca CRNP [address] [place] [address] 12/22/2023 8:45 AM EST Office Visit Gynecology/Obstetrics [facility] [address] [place] [address] Joi Goldman, DNP, CNM [address] [facility] [place] [address] Health Maintenance Due Date Last Done Comments [...] as of this encounter Visit Diagnoses Diagnosis Plantar wart of left foot [B07.0]- Primary Plantar wart Other viral warts documented in this encounter Care Teams Filemaker Developer Relationship Specialty Start Date End Date Constantin Roque MD [address] [place] [address] PCP - General Family Medicine 04/25/23 documented as of this encounter
--- OUTSIDE RECORDS SUMMARY | 2024-01-02 06:45 | External Medical Summary | Summary of Care ---
Author Name Unknown Organization [facility] Address [address] [place] [address] Phone [phone] Care Team Providers Care Mortuary Technician Name Role Phone Constantin Roque MD Primary Care Provider + Reason for Visit * Reason Comments Outpatient Testing Encounter Details Date Type Department Care Team (Late st Contact Info) Description 10/06/2023 11:20 AM EST Laboratory Laboratory, [facility] [address] [place] [address] [facility] [address] [place] [address] Normal in third trimester Allergies Active Allergy Reactions Criticality Noted Date Comments Azithromycin 06/10/2022 Cephalexin Hives 06/10/2022 Penicillins Hives 06/10/2022 documented as of this encounter (statuses as of 10/06/2023) Medications Medication Sig Dispensed Refills Start Date End Date Status Flradha Gummies Gass[place]-3 DHA Oral Tablet Chewable Take 2 Tablets [...] care from [place] and had NOB with [facility] on 06/23/22. She had pyelectasis and marginal cord insertion, which both resolved prior to transferring to [facility]. MFM referral placed. Last Assessment & [...] money to get more. Never true 08/10/2023 [place] Depression Scale Answer Date Recorded [place] Depression Scale Total 0 10/06/2023 The thought [...] on file documented as of this encounter Plan of Treatment Upcoming Encounters Date Type Department Care Team (Late st Contact Info) Description 11/01/2023 8:15 AM EST Office Visit Gynecology/Obstetrics [facility] [address] [place] [address] Sara Taylor CRNP [address] [place] [address] 11/13/2023 8:30 AM EST Office Visit Gynecology/Obstetrics [address] [place] [address] Vale Chappell, [facility] [address] [place] [address] 11/14/2023 4:15 PM EST Office Visit Dermatology [facility] [address] [place] [address] Darrick Crum MD [address] [facility] [place] [address] Sp, Pulse Dye V Beam [address] [facility] [place] [address] 11/27/2023 8:00 AM EST Office Visit Gynecology/Obstetrics [facility] [address] [facility] [place] [address] Sara Taylor CRNP [address] [place] [address] 12/04/2023 8:30 AM EST [facility] [address] [place] [address] Diane Cuenca CRNP [address] [place] [address] 12/13/2023 9:30 AM EST Office Visit Gynecology/Obstetrics [facility] [address] [place] [address] Sara Taylor CRNP [address] [place] [address] 12/22/2023 8:45 AM EST Office Visit Gynecology/Obst[facility]s [facility] [address] [place] [address] Joi Goldman, [address] [address] Pending Results Name Type Priority Associated Diagnoses Date /Time CBC WITH WBC DIFFERENTIAL AND ANEMIA REFLEX WORKUP Lab Routine Normal in third trimester 10/06/2023 12:11 PM EST SYPHILIS ANTIBODY SCREEN WITH REFLEX TO RPR Lab Routine Normal in third trimester 10/06/2023 12:11 PM EST 50-G GESTATIONAL GLUCOSE, 1 HOUR Lab Routine Normal in third trimester 10/06/2023 12:11 PM EST ANEMIA CBC Lab Routine Normal in third trimester 10/06/2023 12:11 PM EST DIFFERENTIAL, AUTOMATED Lab Routine Normal in third trimester 10/06/2023 12:11 PM EST ANEMIA REFLEX CHEMISTRY HOLD Lab Routine Normal in third trimester 10/06/2023 12:11 PM EST SYPHILIS ANTIBODY SCREEN Lab Routine Normal in third trimester 10/06/2023 12:11 PM EST Health Maintenance Due Date Last Done Comments [...] encounter Visit Diagnoses Diagnosis Normal in third trimester documented in this encounter Care Teams Mortuary Technician Relationship Specialty Start Date End Date Constantin Roque MD [address] [place] [address] PCP - General Family Medicine 04/25/23 documented as of this encounter
--- OUTSIDE RECORDS SUMMARY | 2024-01-02 06:45 | External Medical Summary ---
Author Name Unknown Address Unknown Organization K01:LABORATORY [facility] - [address] [place] [address] Laboratory Report Ordering Provider Test Date Status CIARANGOYO 10/06/2023 12:11:44 Final Observation Date Value Abnormality Reference (Units ) Status WBC, Total 10/06/2023 12:11:44 12.45 Above high normal 4 .00-10.80 (K/uL) Final RBC 10/06/2023 12:11:44 4.13 3.85-5.15 (M/uL) Final Hemoglobin 10/06/2023 12:11:44 13.3 12.0-15.3 (g/dL) Final Anemia reflex testing trigge rs on a HGB < 12.0 for Females and HGB < 13.0 for Males in accordance with the WHO Anemia Guidelines
Anemia reflex testing triggers on a HGB < 12.0 for Females and HGB < 13.0 for Males in accordance with the WHO Anemia Guidelines HCT 10/06/2023 12:11:44 40.3 36.0-45.2 (%) Final MCV 10/06/2023 12:11:44 97.6 81.5-97.5 (fL) Final MCH 10/06/2023 12:11:44 32.2 27.0-34.0 (pg) Final MCHC 10/06/2023 12:11:44 33.0 32.0-36.0 (g/dL) Final RDW 10/06/2023 12:11:44 12.7 11.5-15.5 (%) Final Platelets 10/06/2023 12:11:44 252 140-400 (K /uL) Final MPV 10/06/2023 12:11:44 10.2 6.6-11.1 ( fL) Final Nucleated erythrocytes/100 leukocytes [Ratio] in Blood by Automated count 10/06/2023 12:11:44 0 <=0 (/100 WBCs) Fi [facility] Performing Location LAB[facility]ATORY [facility] - [address] [facility] [address]
--- OUTSIDE RECORDS SUMMARY | 2024-01-02 06:45 | External Medical Summary ---
Author Name Unknown Address Unknown Organization K0G:LABORATORY [facility] [place] [address] - [address] [place] [address] Laboratory Report Ordering Provider Test Date Status GOYO WAGONER 10/06/2023 12:11:44 Final Patient doing FRESH TEST Observation Date Value Abnormality Reference (Units ) Status Glucose [Moles/volume] in Serum or Plasma --1 hour post 50 g glucose PO 10/06/2023 12:11:44 100 70-129 (mg/dL) Final Performing Location LABORATORY [facility] [place] [facility] 0 - [address] [place] [address]
--- OUTSIDE RECORDS SUMMARY | 2024-01-02 06:45 | External Medical Summary ---
Author Name Unknown Address Unknown Organization K01:LABORATORY [facility] - [address] [facility] [address] Laboratory Report Ordering Provider Test Date Status GOYO WAGONER 10/06/2023 12:11:44 Final Observation Date Value Abnormality Reference (Units ) Status SYNC LEUKOCYTES IN BLOOD BY AUTOMATED COUNT 10/06/2023 12:11:44 12.45 Above high normal 4.00-10.80 (K/uL) Final Segs 10/06/2023 12:11:44 78.1 Above high normal 40.0-75.0 (%) Final Lymphs % 10/06/2023 12:11:44 12.0 Below low normal 18.0-42.0 (%) Final Monos 10/06/2023 12:11:44 5.2 1.0-11.0 (%) Final Eosinophils 10/06/2023 12:11:44 1.8 0.0-6.0 (%) Final Basos 10/06/2023 12:11:44 0.5 0.0-2.0 (%) Final Immature Granulocyte, Percent 10/06/2023 12:11:44 2.4 Above high normal 0.0-2.0 (%) Final Absolute Segs 10/06/2023 12:11:44 9.72 Above high normal 1.80-7.70 (K/uL) Final Lymphs, absolute 10/06/2023 12:11:44 1.49 1.00-4.80 (K/ul) Final Monos, Abs 10/06/2023 12:11:44 0.65 0.00-1.10 (K/uL) Final Eos, Abs 10/06/2023 12:11:44 0.23 0.00-0.70 (K/uL) Final Basos, Abs 10/06/2023 12:11:44 0.06 0.00-0.20 (K/uL) Final Immature Granulocytes, Number 10/06/2023 12:11:44 0.30 Above high normal 0.00-0.20 (K/uL) Final Performing Location LABORATORY [facility] [place] - [facility] [address] [facility] [address]
--- OUTSIDE RECORDS SUMMARY | 2024-01-02 06:45 | External Medical Summary | Summary of Care ---
Author Name Unknown Organization [facility] Address [address] [place] [address] Phone [phone] Care Team Providers Care Planing Machine Operator Name Role Phone Constantin Roque MD Primary Care Provider + Reason for Visit * Reason Comments Return Visit Encounter Details Date Type Department Care Team (Late st Contact Info) Description 11/01/2023 8:15 AM EST Office Visit Gynecology/Obstetric s [facility] [address] [place] [address] Sara Taylor CRNP [address] [place] [address] Normal in third trimester*; Short interval between pregnancies complicating , antepartum Allergies Active Allergy Reactions Criticality Noted Date Comments Azithromycin 06/10/2022 Cephalexin Hives 06/10/2022 Penicillins Hives 06/10/2022 documented as of this encounter (statuses as of 11/01/2023) Medications Medication Sig Dispensed Refills Start Date End Date Status Jaquan Valeriomilowell [place]-3 DHA Oral Tablet Chewable Take 2 Tablets by mouth in the morning. 0 Active Breast PumpIndications:Breas t feeding status of mother Estimated Date of Delivery: 12/24/23, Z39.1, double electric pump to use as directed 1 Each 0 10/19/2023 Active documented as of this encounter (statuses as of 11/01/2023) Active Problems Problem Noted Date Diagnosed Date Normal 05/17/2023 Short interval between pregn ancies complicating , antepartum 05/17/2023 Overview: 09/2022 last delivery Pain of toe of right foot 02/09/2023 Toenail avulsion, initial encounter 02/09/2023 Estimated Date of Delivery Comme nts Yes 12/24/2023 Based on last me nstrual period of 03/19/2023 (Exact Date) documented as of this encounter (statuses as of 11/01/2023) Resolved Problems Problem Noted Date Diagnosed Date Resolved Date Normal 09/14/2022 10/05/2022 Abnormal ultrasonic finding on screening of mother 07/06/2022 09/14/2022 Overview: Previously seen pyelectasis. Last Assessment & Plan: kidneys are normal on today's ultrasound. Suspected placental problem not found 06/23/2022 09/21/2022 Overview: Transferred care from [place] and had NOB with [facility] on 06/23/22. She had pyelectasis and marginal cord insertion, which both resolved prior to transferring to [facility]. MFM referral placed. Last Assessment & Plan: Eccentric cord insertion into the placenta. Normal growth. No indication for additional monitoring. documented as of this encounter (statuses as of 11/01/2023) Immunizations Name Administration Dates Next Due Seasonal [...] money to get more. Never true 08/10/2023 [place] Depression Scale Answer Date Recorded [place] Depression Scale Total 0 10/06/2023 The thought [...] Sign Reading Time Taken Comments Blood Pressure 92/66 11/01/2023 8:00 AM EST Pulse - - Temperature - - Respiratory Rate - - Oxygen Saturation - - Inhaled Oxygen Concentration - - Weight 78 kg (172 lb) 11/01/2023 8:00 AM EST Height 154.9 cm (5' 0.98") 11/01/2023 8:00 AM ES T Body Mass Index 32.52 11/01/2023 8:00 AM EST documented in this encounter Progress Notes * Sara Taylor CRNP - 11/01/2023 8:14 AM EST 32w3d Noticing floaters in right eye this past week. Not every day. BP fine. No other concerns. Baby is active. No contractions, bleeding, or LOF. SIGRID Vargas * Janine Torres LPN - 11/01/2023 8:03 AM EST 32w3d Has had increase in floaters in right eye this past week. documented in this encounter Plan of Treatment Upcoming Encounters Date Type Department Care Team (Late st Contact Info) Description 11/13/2023 8:30 AM EST Office Visit Gynecology/Obstetrics [facility] [address] [place] [address] Vale Chappell CNM [address] [facility] [place] [address] 11/14/2023 4:15 PM EST Office Visit [facility] [address] [place] [address] Darrick Crum MD [address] [place] [address] Elizabeth Washington V Beam [address] [facility] [place] [address] 11/27/2023 8:00 AM EST Office Visit Gynecology/Obstetrics [facility] [address] [place] [address] Sara Taylor CRNP [address] [place] [address] 12/04/2023 8:30 AM EST Office Visit Gynecology/Obstetrics [facility] [address] [place] [address] Diane Cuenca CRNP [address] [place] [address] 12/13/2023 9:30 AM EST Office Visit Gynecology/Obstetrics [facility] [address] [place] [address] Sara Taylor CRNP [address] [place] [address] 12/22/2023 8:45 AM EST Office Visit Gynecology/Obstetrics [facility] [address] [place] [address] Joi Goldman CNM [address] [place] [address] Health Maintenance Due Date Last Done Comments [...] high-risk documented in this encounter Care Teams Planing Machine Operator Relationship Specialty Start Date End Date Constantin Roque MD [address] [place] [address] PCP - General Family Medicine 04/25/23 documented as of this encounter
--- OUTSIDE RECORDS SUMMARY | 2024-01-02 06:46 | External Medical Summary | Summary of Care ---
Author Name Unknown Organization [facility] Address [address] [facility] [address] Phone [phone] Care Team Providers Care Office Machine Repair Shop Supervisor Name Role Phone Constantin Roque MD Primary Care Provider + Reason for Visit * Reason Comments Return Visit Encounter Details Date Type Department Care Team Description 07/14/2023 Office Visit Gynecology/Obstetrics [facility] [address] [place] [address] Diane Cuenca CRNP [address] [place] [address] Normal in second trimester*; Short interval between pregnancies complicating , antepartum Allergies Active Allergy Reactions Severity Noted Date Comments Azithromycin 06/10/2022 Cephalexin Hives 06/10/2022 Penicillins Hives 06/10/2022 documented as of this encounter (statuses as of 07/14/2023) Medications Medication Sig Dispensed Refills Start Date End Date Status Flinshuan Gummies [place]-3 DHA Oral Tablet Chewable Take 2 Tablets by mouth in the morning. 0 Active Metamucil 28.3 % Oral Powder (Psyllium) Take by mouth. As directed 0 07/14/2023 Discontinued( Medication List Clean Up) documented as of this encounter (statuses as of 07/14/2023) Active Problems Problem Noted Date Normal 05/17/2023 Short interval between pregnancies compl icating , antepartum 05/17/2023 Overview: 09/2022 last delivery Pain of toe of right foot 02/09/2023 Toenail avulsion, initial encounter 040 04/2023 Estimated Date of Delivery Comme nts Yes 12/24/2023 Based on last me nstrual period of 03/19/2023 (Exact Date) documented as of this encounter (statuses as of 07/14/2023) Resolved Problems Problem Noted Date Resolved Date Normal 09/14/2022 10/05/2022 Abnormal ultrasonic finding on screeni ng of mother 07/06/2022 09/14/2022 Overview: Previously seen pyelectasis. Last Assessment & Plan: kidneys are normal on today's ultrasound. Suspected placental problem not found 06/23/2022 09/21/2022 Overview: Transferred care from [place] and had NOB with [facility] on 06/23/22. She had pyelectasis and marginal cord insertion, which both resolved prior to transferring to [facility]. MFM referral placed. Last Assessment & Plan: Eccentric cord insertion into the placenta. Normal growth. No indication for additional monitoring. documented as of this encounter (statuses as of 07/14/2023) Immunizations Name Administration Dates Next Due Seasonal Influenza, PF, 6 mons & Above, IM , (Fl ulaval) 07/22/2022 TDAP (age 10 and older)(Boostrix) 07/06/2022 documented as of this encounter Social History Tobacco Use Types Packs/Day Years Used Date Smoking Tobacco: Never Passive Smoke Exposure: Never Smokeless Tobacco: Never Tobacco Cessation:Counseling Given: Not Answered Alcohol Use Standard Drinks/Week Comments Not Currently 0 (1 standard drink = 0.6 oz pur e alcohol) Food Insecurity Answer Date Recorded Within the past 12 months, y ou worried that your food would run out before you got money to buy more. Never true 04/11/2023 Within the past 12 months, t he food you bought just didn't last and you didn't have money to get more. Never true 04/11/2023 Estimated Date of Delivery Comme nts Yes 12/24/2023 Based on last me nstrual period of 03/19/2023 (Exact Date) Sex Assigned at Date Recorded Female 06/23/2022 9:13 AM E DT Job Start Date Occupation Industry Not on file Not on file Not on file documented as of this encounter Last Filed Vital Signs Vital Sign Reading Time Taken Comments Blood Pressure 100/62 07/14/2023 8:51 AM EDT Pulse - - Temperature - - Respiratory Rate - - Oxygen Saturation - - Inhaled Oxygen Concentration - - Weight 69 kg (152 lb 3.2 oz) 07/14/2023 8:51 AM EDT Height 154.9 cm (5' 1") 07/14/2023 8:51 AM EDT Body Mass Index 28.76 07/14/2023 8:51 AM EDT documented in this encounter Progress Notes * SIGRID Pedroza - 07/14/2023 9:01 AM EDT Doing well, feeling movement. No cramping/bleeding or nausea. Discussed MSAFP and role in screening for ONTD; will check insurance, advised to complete by 23 weeks if desired. Occasional HAs when chasing daughter around. Has not treated. Recommend Tylenol, small amount of caffeine, push fluids. Can take magnesium 400 mg PO QHS to prevent frequent HAs. Anatomy scan at next visit. SIGRID Amaya documented in this encounter Nursing Notes * Kristie Arias RN - 07/14/2023 8:52 AM EDT Patient here for TEA 16w5d No concerns Pended anatomy Kristie Arias, MARIA M documented in this encounter Plan of Treatment Upcoming Encounters Date Type Specialty Care Team Description 08/11/2023 Imaging Radiology 08/11/2023 Office Visit Gynecology Obstetrics Sara Taylor CRNP [address] [place] [address] 08/18/2023 Office Visit Dermatology Griselda Shaffer MD [address] [facility] [place] [address] Sp, Pulse D[place] [facility] [address] Scheduled Orders Name Type Priority Associated Diagnoses Orde r Schedule US PREG SINGLE/1ST GEST, 14 WEEKS OR LATER Medical Imaging Routine Normal in second trimester Expected: 08/07/2023, Expires: 08/13/2024 Health Maintenance Due Date Last Done Comments Hepatitis B (1 of 3 - 3-dose series) 1995 COVID-19 Vaccine (#1) 1995 Depression Screening 07/06/2023 07/06/2022 Influenza Vaccine (FLU shot) (#1) 2023 07/22/2022, 07/22/2022 Pap Smear 12/12/2025 12/12/2022 DTaP,Tdap,and Td Vaccines (2 - Td or Tdap) 07/06/2032 07/06/2022 Hepatitis C Screening Completed 05/17/2023 , 05/17/2023, 05/17/2023 GARDASIL-HPV IMMUNIZATION SERIES Aged Out No longer [...] this encounter Visit Diagnoses Diagnosis Normal in second trimester- Primary Short interval between pregnancies complicating , antepartum Supervision of other high-risk documented in this encounter Care Teams Office Machine Repair Shop Supervisor Relationship Specialty Start Date End Date Constantin Roque MD [address] [place] [address] PCP - General Family Medicine 04/25/23 documented as of this encounter
--- OUTSIDE RECORDS SUMMARY | 2024-01-02 06:46 | External Medical Summary | Summary of Care ---
Author Name Unknown Organization [facility] Address [address] [place] [address] Phone [phone] Care Team Providers Care Top Flavor Attendant Name Role Phone Constantin Roque MD Primary Care Provider + Reason for Visit * Reason Comments Return Visit Encounter Details Date Type Department Care Team Description 08/11/2023 Office Visit Gynecology/Obstetrics [facility] [address] [place] [address] Sara Taylor CRNP [address] [place] [address] Normal in second trimester*; Short interval between pregnancies complicating , antepartum Allergies Active Allergy Reactions Severity Noted Date Comments Azithromycin 06/10/2022 Cephalexin Hives 06/10/2022 Penicillins Hives 06/10/2022 documented as of this encounter (statuses as of 08/11/2023) Medications Medication Sig Dispensed Refills Start Date End Date Status Flradha Gummies [place]-3 DHA Oral Tablet Chewable Take 2 Tablets by mouth in the morning. 0 Active documented as of this encounter (statuses as of 08/11/2023) Active Problems Problem Noted Date Normal 05/17/2023 Short interval between pregnancies compl icating , antepartum 05/17/2023 Overview: 09/2022 last delivery Pain of toe of right foot 02/09/2023 Toenail avulsion, initial encounter 04/2023 Estimated Date of Delivery Comme nts Yes 12/24/2023 Based on last me nstrual period of 03/19/2023 (Exact Date) documented as of this encounter (statuses as of 08/11/2023) Resolved Problems Problem Noted Date Resolved Date Normal 09/14/2022 10/05/2022 Abnormal ultrasonic finding on screeni ng of mother 07/06/2022 09/14/2022 Overview: Previously seen pyelectasis. Last Assessment & Plan: kidneys are normal on today's ultrasound. Suspected placental problem not found 06/23/2022 09/21/2022 Overview: Transferred care from [place] and had NOB with [facility] on 06/23/22. She had pyelectasis and marginal cord insertion, which both resolved prior to transferring to [facility]. MFM referral placed. Last Assessment & Plan: Eccentric cord insertion into the placenta. Normal growth. No indication for additional monitoring. documented as of this encounter (statuses as of 08/11/2023) Immunizations Name Administration Dates Next Due SEASONAL INFLUENZA, PF, 6 M & Above, IM , (FLULAVAL or FLUZONE) 07/22/2022 TDAP (age 10 and older)(Boostrix) 07/06/2022 [...] got money to buy more. Never true 08/10/2023 Within the past 12 months, t he food you bought just didn't last and you didn't have money to get more. Never true 08/10/2023 Estimated Date of Delivery Comme nts Yes 12/24/2023 Based on last me nstrual period of 03/19/2023 (Exact Date) Sex Assigned at Date Recorded Female 06/23/2022 9:13 AM E DT Job Start Date Occupation Industry Not on file Not on file Not on file documented as of this encounter Last Filed Vital Signs Vital Sign Reading Time Taken Comments Blood Pressure 100/60 08/11/2023 9:59 AM EDT Pulse - - Temperature - - Respiratory Rate - - Oxygen Saturation - - Inhaled Oxygen Concentration - - Weight 70.8 kg (156 lb) 08/11/2023 9:59 AM EDT Height - - Body Mass Index 29.48 07/14/2023 8:51 AM EDT documented in this encounter Progress Notes * SIGRID Vargas - 08/11/2023 10:16 AM EDT 20w5d No concerns. Wants flu vaccine at next visit. +FM, no bleeding or LOF. Anatomy u/s today, formal report pending. +cardiac activity on u/s. SIGRID Vargas * Deysi Akers LPN - 08/11/2023 10:01 AM EDT 20w5d Denies vaginal bleeding/rom + movement Anatomy scan today No new concerns documented in this encounter Plan of Treatment Upcoming Encounters Date Type Specialty Care Team Description 08/18/2023 Office Visit Dermatology Griselda Shaffer MD [address] [facility] [place] [address] Sp, Pulse Dye V Beam [address] [facility] [place] [address] 09/11/2023 Office Visit Gynecology Obstetrics Backer, SIGRID Pop [address] [facility] [place] [address] Health Maintenance Due Date Last Done Comments Hepatitis B (1 of 3 - 3-dose series) 1995 COVID-19 Vaccine (#1) 1995 Depression Screening 07/06/2023 07/06/2022 Influenza Vaccine (FLU shot) (#1) 2023 07/22/2022, 07/22/2022 Pap Smear 12/12/2025 12/12/2022 DTaP,Tdap,and Td Vaccines (2 - Td or Tdap) 07/06/2032 07/06/2022 GARDASIL-HPV IMMUNIZATION SERIES Aged Out No longer [...] high-risk documented in this encounter Care Teams Top Flavor Attendant Relationship Specialty Start Date End Date Constantin Roque MD [address] [place] [address] PCP - General Family Medicine 04/25/23 documented as of this encounter
--- OUTSIDE RECORDS SUMMARY | 2024-01-02 06:46 | External Medical Summary | Summary of Care ---
Author Name Unknown Organization [facility] Address [address] [place] [address] Phone [phone] Care Team Providers Care Grades 1 6 Tutor Name Role Phone Constantin Roque MD Primary Care Provider + Reason for Visit * Reason Onset Date Comments Return Visit Medication Administration 09/20/2023 Flu an d/or Pneumo Inj Encounter Details Date Type Department Care Team (Late st Contact Info) Description 09/20/2023 11:30 AM EST Office Visit Gynecology/Obstetric s [facility] [address] [place] [address] Mei Campbell PA-C [address] [place] [address] Normal in third trimester*; Short interval between pregnancies complicating , antepartum; Need for prophylactic vaccination and inoculation against influenza Allergies Active Allergy Reactions Criticality Noted Date Comments Azithromycin 06/10/2022 Cephalexin Hives 06/10/2022 Penicillins Hives 06/10/2022 documented as of this encounter (statuses as of 09/20/2023) Medications Medication Sig Dispensed Refills Start Date End Date Status Flinstones Gummies [place]-3 DHA Oral Tablet Chewable Take 2 Tablets by mouth in the morning. 0 Active documented as of this encounter (statuses as of 09/20/2023) Active Problems Problem Noted Date Diagnosed Date Normal 05/17/2023 Short interval between pregn ancies complicating , antepartum 05/17/2023 Overview: 09/2022 last delivery Pain of toe of right foot 02/09/2023 Toenail avulsion, initial encounter 02/09/2023 Estimated Date of Delivery Comme nts Yes 12/24/2023 Based on last me nstrual period of 03/19/2023 (Exact Date) documented as of this encounter (statuses as of 09/20/2023) Resolved Problems Problem Noted Date Diagnosed Date Resolved Date Normal 09/14/2022 10/05/2022 Abnormal ultrasonic finding on screening of mother 07/06/2022 09/14/2022 Overview: Previously seen pyelectasis. Last Assessment & Plan: kidneys are normal on today's ultrasound. Suspected placental problem not found 06/23/2022 09/21/2022 Overview: Transferred care from [place] and had NOB with [facility] on 06/23/22. She had pyelectasis and marginal cord insertion, which both resolved prior to transferring to [facility]. MFM referral placed. Last Assessment & Plan: Eccentric cord insertion into the placenta. Normal growth. No indication for additional monitoring. documented as of this encounter (statuses as of 09/20/2023) Immunizations Name Administration Dates Next Due SEASONAL INFLUENZA, PF, 6 M & Above, IM , (FLULAVAL or FLUZONE) 09/20/2023,07/22/2022 TDAP (age 10 and older)(Boostrix) 07/06/2022 documented [...] money to get more. Never true 08/10/2023 [place] Depression Scale Answer Date Recorded [place] Depression Scale Total 0 05/17/2023 The thought of harming myself has occurred to me . Never 05/17/2023 Estimated Date of Delivery Comme nts Yes [...] Reading Time Taken Comments Blood Pressure 92/66 09/20/2023 11:14 AM EST Pulse - - Temperature - - Respiratory Rate - - Oxygen Saturation - - Inhaled Oxygen Concentration - - Weight 73.5 kg (162 lb) 09/20/2023 11:14 AM EST Height 154.9 cm (5' 1") 09/20/2023 11:14 AM EST Body Mass Index 30.61 09/20/2023 11:14 AM EST documented in this encounter Progress Notes * Mei Campbell PA-C - 09/20/2023 11:32 AM EST 26w3d Doing well. Denies concerns. Would like to do Fresh Test for GDM screening. States got sick in lastpregnancy with traditional test. Reviewed testing and additional out of pocket cost for test and charge to insurance. She understands, paperwork signed to be scanned to chart. Denies bleeding, leaking, contractions. Pos FM. Desires flu vaccine, given. Reviewed recommendations for TDaP. RTC in 2 weeks * Janine Torres LPN - 09/20/2023 11:18 AM EST 26w3d Denies concerns Would like flu vaccine today documented in this encounter Nursing Notes * Janine Torres LPN - 09/20/2023 11:49 AM EST Patient here for flu injection. Patient doing well no complaints. Injection [...] Care Team (Late st Contact Info) Description 10/05/2023 1:15 PM EST Office Visit Dermatology [facility] [address] [facility] [place] [address] Griselda Shaffer MD [address] [facility] [place] [address] 10/06/2023 11:20 AM EST Laboratory Laboratory, [facility] [address] [place] [address] [facility] [address] [place] [address] 10/06/2023 11:30 AM EST Office Visit Gynecology/Obstetrics [facility] [address] [place] [address] Mei Campbell PA-C [address] [place] [address] Scheduled Orders Name Type Priority Associated Diagnoses Orde r Schedule CBC WITH WBC DIFFERENTIAL AND ANEMIA REFLEX WORKUP Lab Routine Normal in third trimester Expected: 09/20/2023 (Approximate), Expires: 09/20/2024 SYPHILIS ANTIBODY SCREEN WITH REFLEX TO RPR Lab Routine Normal in third trimester Expected: 09/20/2023 (Approximate), Expires: 09/20/2024 50-G GESTATIONAL GLUCOSE, 1 HOUR Lab Routine Normal in third trimester Expected: 09/20/2023 (Approximate), Expires: 09/20/2024 Health Maintenance Due Date Last Done Comments Hepatitis B (1 of 3 - 3-dose series) 1995 COVID-19 Vaccine (#1) 1995 Depression Screening 07/06/2023 07/06/2022 Pap Smear 12/12/2025 12/12/2022 DTaP,Tdap,and Td Vaccines (2 - Td or Tdap) 07/06/2032 07/06/2022 Influenza Vaccine (FLU shot) Completed , [...] antepartum Supervision of other high-risk Need for prophylactic vaccination and inoculation against influenza documented in this encounter Care Teams Grades 1 6 Tutor Relationship Specialty Start Date End Date Constantin Roque MD [address] [place] [address] PCP - General Family Medicine 04/25/23 documented as of this encounter
--- OUTSIDE RECORDS SUMMARY | 2024-01-02 06:46 | External Medical Summary | Summary of Care ---
Author Name Unknown Organization [facility] Address [address] [place] [address] Phone [phone] Care Team Providers Care Roll Repairer Name Role Phone Constantin Roque MD Primary Care Provider + Reason for Visit * Reason Comments Laser Procedure Patient is here to [facility] laser treatment to left foot for a wart. Patient said the wart has gotten smaller and some spots have healed but other areas still need treated. Encounter Details Date Type Department Care Team Description 08/18/2023 Office Visit Dermatology [facility] [place] [address] [facility] [place] [address] Griselda Shaffer MD [address] [place] [address] Sp, Pulse Dye V Beam [address] [place] [address] Plantar wart of left foot* Allergies Active Allergy Reactions Severity Noted Date Comments Azithromycin 06/10/2022 Cephalexin Hives 06/10/2022 Penicillins Hives 06/10/2022 documented as of this encounter (statuses as of 08/18/2023) Medications Medication Sig Dispensed Refills Start Date End Date Status Flinspradeepes Gummies [place]-3 DHA Oral Tablet Chewable Take 2 Tablets by mouth in the morning. 0 Active documented as of this encounter (statuses as of 08/18/2023) Active Problems Problem Noted Date Normal 05/17/2023 Short interval between pregnancies compl icating , antepartum 05/17/2023 Overview: 09/2022 last delivery Pain of toe of right foot 02/09/2023 Toenail avulsion, initial encounter 04/2023 Estimated Date of Delivery Comme nts Yes 12/24/2023 Based on last me nstrual period of 03/19/2023 (Exact Date) documented as of this encounter (statuses as of 08/18/2023) Resolved Problems Problem Noted Date Resolved Date Normal 09/14/2022 10/05/2022 Abnormal ultrasonic finding on screeni ng of mother 07/06/2022 09/14/2022 Overview: Previously seen pyelectasis. Last Assessment & Plan: kidneys are normal on today's ultrasound. Suspected placental problem not found 06/23/2022 09/21/2022 Overview: Transferred care from [place] and had NOB with [facility] on 06/23/22. She had pyelectasis and marginal cord insertion, which both resolved prior to transferring to [facility]. MFM referral placed. Last Assessment & Plan: Eccentric cord insertion into the placenta. Normal growth. No indication for additional monitoring. documented as of this encounter (statuses as of 08/18/2023) Immunizations Name Administration Dates Next Due SEASONAL [...] as of this encounter Progress Notes * Griselda Shaffer MD - 08/18/2023 8:11 AM EDT S: Stella Arauz is a 28 year old female for follow up on warts. Last treated 1 month(s) ago with PDL and occlusion. Treatment has resulted in partial clearing. Other skin complaints today: no Current Outpatient Medications Medication Sig Dispense Refill Flinstones Gummies [place]-3 DHA Oral Tablet Chewable Take 2 Tablets by mouth in the morning. No current facility-administered medications for this visit. Review of patient's allergies indicates: Allergen Reactions Azithromycin Cephalexin Hives Penicillins Hives Patient Active Problem List Diagnosis Code Pain of toe of right foot M79.674 Toenail avulsion, initial encounter S91.209A Normal Z34.90 Short interval between pregnancies complicating , antepartum O09.899 O: L heel and upper plantar - verrucal papules, fewer than last visit A: Verruca, plantar - improving P: 1. Pulse dye laser was determined to be the best method for treatment. The procedure, risks, benefits, alternatives and expected outcomes were discussed with the patient and verbal consent was obtained. Time out called. Patient identified, procedure verified, site identified and verified. Patient and staff present in agreement. Eye protection placed. Laser surgery was performed with 595nm PDL using 7 mm spot size with 1.5 pulse width and 14 Joules of energy number of pulses 20. Patient instructed in routine post-op care. *pt , no yeny acid for now, occlusion with duct tape when possible Follow up: 1 month Griselda Shaffer MD 08/18/2023 8:11 AM documented in this encounter Nursing Notes * Rupa Hightower LPN - 08/18/2023 7:51 AM EDT Patient identified by name and date of . Do you have any concerns about pain management for today's visit? No Living Will or Advance Directive for Health Care as noted on problem list. [employer] is a way you can talk to your provider online through e-mail. Would you like to sign up? I can activate it for you? ALREADY ACTIVE Chief Complaint Patient presents with Laser Procedure Patient is here to have laser treatment to left foot for a wart. Patient said the wart has gotten smaller and some spots have healed but other areas still need treated. documented in this encounter Plan of Treatment Upcoming Encounters Date Type Specialty Care Team Description 09/11/2023 Office Visit Gynecology Obstetrics Backer, SIGRID Pop [address] [place] [address] 10/05/2023 Office Visit Dermatology Griselda Shaffer MD [address] [place] [address] Health Maintenance Due Date Last Done Comments [...] Visit Diagnoses Diagnosis Plantar wart of left foot- Primary Plantar wart documented in this encounter Care Teams Roll Repairer Relationship Specialty Start Date End Date Constantin Roque MD [address] [place] [address] PCP - General Family Medicine 04/25/23 documented as of this encounter
--- OUTSIDE RECORDS SUMMARY | 2024-01-02 06:46 | External Medical Summary | Summary of Care ---
Author Name Unknown Organization [facility] Address [address] [place] [address] Phone [phone] Care Team Providers Care Dentistry Teacher Name Role Phone Constantin Roque MD Primary Care Provider + Reason for Visit * Reason Comments Warts Patient is here for follow up for wart on her foot. Patient stated that there is improvement and it's harder to get the duct tape to stick. She said there are still some areas that she is not sure if they are warts or not. Patient stated that she is here for laser treatment today * Evaluate & Treat - Unlimited Visits (Within 30 days (routine)) - Pending Review Specialty Diagnoses / Procedures Referred By Ermelinda chavez Referred To Contact Dermatology Diagnoses Plantar wart of left foot Annalisa Mayer CRNP [address] [place] [address] Referral ID Status Reason Start Date Expiration Date Visits Requested Visits Authorized [id number] Pending Review Specialty Services Required [phone] Encounter Details Date Type Department Care Team (Late st Contact Info) Description 10/05/2023 1:15 PM EST Office Visit Dermatology [facility] [address] [place] [address] Griselda Shaffer MD [address] [place] [address] Plantar wart of left foot [B07.0]* Allergies Active Allergy Reactions Criticality Noted Date Comments Azithromycin 06/10/2022 Cephalexin Hives 06/10/2022 Penicillins Hives 06/10/2022 documented as of this encounter (statuses as of 10/05/2023) Medications Medication Sig Dispensed Refills Start Date End Date Status Jaquan Rodriguez [place]-3 DHA Oral Tablet Chewable Take 2 Tablets by mouth in the morning. 0 Active documented as of this encounter (statuses as of 10/05/2023) Active Problems Problem Noted Date Diagnosed Date Normal 05/17/2023 Short interval between pregn ancies complicating , antepartum 05/17/2023 Overview: 09/2022 last delivery Pain of toe of right foot 02/09/2023 Toenail avulsion, initial encounter 02/09/2023 Estimated Date of Delivery Comme nts Yes 12/24/2023 Based on last me nstrual period of 03/19/2023 (Exact Date) documented as of this encounter (statuses as of 10/05/2023) Resolved Problems Problem Noted Date Diagnosed Date Resolved Date Normal 09/14/2022 10/05/2022 Abnormal ultrasonic finding on screening of mother 07/06/2022 09/14/2022 Overview: Previously seen pyelectasis. Last Assessment & Plan: kidneys are normal on today's ultrasound. Suspected placental problem not found 06/23/2022 09/21/2022 Overview: Transferred care from [place] and had NOB with [facility] on 06/23/22. She had pyelectasis and marginal cord insertion, which both resolved prior to transferring to [facility]. MFM referral placed. Last Assessment & Plan: Eccentric cord insertion into the placenta. Normal growth. No indication for additional monitoring. documented as of this encounter (statuses as of 10/05/2023) Immunizations Name Administration Dates Next Due SEASONAL [...] money to get more. Never true 08/10/2023 [place] Depression Scale Answer Date Recorded [place] Depression Scale Total 0 05/17/2023 The thought [...] Progress Notes * Griselda Shaffer MD - 10/05/2023 1:27 PM EST S: Stella Arauz is a 28 year old female for follow up on warts. Last treated 6 week(s) ago withPDL and duct tape. Treatment has resulted in partial clearing. Other skin complaints today: no Current Outpatient Medications Medication Sig Dispense Refill Flinstones Gummies [place]-3 DHA Oral Tablet Chewable Take 2 [...] 1. Pulse dye laser treatment 595nm today The procedure, risks, benefits, alternatives and expected outcomes were discussed with the patient and verbal consent was obtained. Time out called. Patient identified, procedure verified, site identified and verified. Patient and staff present in agreement. Eye protection placed. Laser surgery was performed with 595nm PDL using 7 mm spot size with 1.5 pulse width and 15 Joules of energy number of pulses 9. Patient instructed in routine post-op care. *pt , no yeny acid for now, occlusion with duct tape or duoderm when possible Follow up: 1-2 months, PDL or other destructive therapy Griselda Shaffer MD 10/05/2023 1:28 PM documented in this encounter Nursing Notes * Rupa Hightower LPN - 10/05/2023 1:11 PM EST Patient identified by name and date of . Do you have any concerns about pain management for today's visit? No Living Will or Advance Directive for Health Care as noted on problem list. [employer] is a way you can talk to your provider online through e-mail. Would you like to sign up? I can activate it for you? ALREADY ACTIVE Chief Complaint Patient presents with Warts Patient is here for follow up for wart on her foot. Patient stated that there is improvement and it's harder to get the duct tape to stick. She said there are still some areas that she is not sure ifthey are warts or not. Patient stated that she is here for laser treatment today documented in this encounter Plan of Treatment Upcoming Encounters Date Type Department Care Team (Late st Contact Info) Description 10/06/2023 11:20 AM EST [facility] [address] [facility] [place] [id number] Reva Phan [address] [facility] [place] [address] 10/06/2023 11:30 AM EST Office Visit Gynecology/Obstetrics Marky Phan [address] [place] [address] Mei Campbell PA-C [address] [place] [address] 11/14/2023 4:15 PM EST Office Visit Dermatology [facility] [place] [address] [facility] [place] [address] Darrick Crum MD [address] [facility] [place] [address] Sp, Pulse Dye V Beam [address] [facility] [place] [address] Scheduled Referrals Name Type Priority Associated Diagnoses Orde r Schedule DERMATOLOGY REFERRAL OP Referral Within 30 days (routine) Plantar wart of left foot Ordered: 08/29/2023 DERMATOLOGY REFERRAL OP Referral Within 10 days (routine) Plantar wart of left foot Ordered: 09/21/2023 Health Maintenance Due Date Last Done Comments [...] of left foot [B07.0]- Primary Plantar wart documented in this encounter Care Teams Dentistry Teacher Relationship Specialty Start Date End Date Constantin Roque MD [address] [place] [address] PCP - General Family Medicine 04/25/23 documented as of this encounter
[2024-01-02] MEDS: ACETAMINOPHEN 325 MG TAB PO PRN (07:14)
[2024-01-02] MEDS: DIPHTHER/TETAN/PERTUS Vaccine (Tdap, Adol/Adult) 0.5mL IM ONE (08:16)
[2024-01-02] MEDS: DOCUSATE SODIUM 100 MG CAP PO SCH (08:54)
[2024-01-02] MEDS: PRENATAL VITAMIN 1 TAB PO SCH (08:54)
[2024-01-02] MEDS: FERROUS SULFATE 325 MG TAB PO SCH (08:54)
[2024-01-02] MEDS ORDERED: [UNRECOGNIZED DRUG - REMARK] PO SCH (09:00)
--- NOTE | 2024-01-02 09:58 | Obstetrical Progress Note ---
Date of Service January 02, 2024 Assessment & Plan (1) Perineal laceration during delivery, delivered: Explained to patient I would like her to be taken back to the exam room, and further assess the perineal laceration. Will plan to repair the second-degree, but further assess and rule out that it is not a third or fourth degree laceration. She is agreeable. All questions were answered at the bedside Subjective Called by nursing as they had done a straight cath and there was concern for the perineal laceration. Patient is uncomfortable at this time and is agreeable to exam Physical Exam Genitourinary External genitalia: Noted extensive second-degree perineal laceration extending up into the vagina, unable to assess further due to patient's discomfort Results & Data Vital Signs (Past 12 Hours) Vital Signs Temp Pulse Resp BP 01/02/24 07:40 20 01/02/24 07:00 105 H 01/02/24 07:00 129/68 01/02/24 06:39 102 H 01/02/24 06:39 120/74 01/02/24 06:15 18 01/02/24 06:04 67 01/02/24 06:04 116/72 01/02/24 05:54 63 01/02/24 05:54 119/73 01/02/24 05:45 18 01/02/24 05:44 83 01/02/24 05:44 111/68 01/02/24 05:34 82 01/02/24 05:34 114/72 01/02/24 05:24 75 01/02/24 05:24 113/65 01/02/24 05:15 18 01/02/24 05:14 76 01/02/24 05:14 117/62 01/02/24 05:04 98 H 01/02/24 05:04 124/59 L 01/02/24 05:00 18 01/02/24 04:54 81 01/02/24 04:54 125/69 01/02/24 04:50 85 01/02/24 04:50 101/56 L 01/02/24 04:45 18 01/02/24 04:34 88 01/02/24 04:34 104/66 01/02/24 04:30 18 01/02/24 04:24 77 01/02/24 04:24 120/63 01/02/24 04:15 36.6 C 18 01/02/24 04:14 79 01/02/24 04:14 114/59 L 01/02/24 03:41 36.8 C 18 01/02/24 03:32 63 122/60
[2024-01-02] MEDS: BUTORPHANOL TARTRATE 2 MG/ML VIAL ONE (10:39)
[2024-01-02] MEDS: LACTATED RINGER'S 1,000 ML IV PRN (10:40)
[2024-01-02] MEDS: LIDOCAINE 1% LOCAL 20 ML VIAL INFIL ONE (10:49)
--- NOTE | 2024-01-02 11:04 | Procedure Note ---
Procedure Note Date of Service January 02, 2024 Note Patient was brought to labor and delivery triage room, placed in dorsal lithotomy position. Noted at least second-degree perineal laceration that extended at least 5 cm off the vaginal mucosa, and 3 cm down the perineal body however was unable to completely assess due to patient's discomfort. Injected with 1% lidocaine, plus patient still felt that she was too uncomfortable to proceed at this time. IV team was called and she was given 1 mg of IV Stadol for patient comfort. Additional 1% lidocaine was injected along the perineum and vaginal mucosa. Noted third-degree laceration (3A). External anal sphincter was reapproximated with 3-0 Vicryl. The vaginal mucosa and perineal laceration was repaired with continuous 3-0 Vicryl in a running fashion. Noted good hemostasis. Rectal exam after the procedure noted no buttonhole laceration through the rectal mucosa and no suture material was noted. Patient was updated extensively about the findings and the repair at the time of the procedure. Patient tolerated the procedure extremely well. She will recover in the triage room and then be taken back to her room EBL 20 mls Coding
[2024-01-02] MEDS: IBUPROFEN 600 MG TAB PO PRN (13:15)
[2024-01-02] MEDS: BENZOCAINE 20% SPRY 85 APPLN/85 GM CAN EXT PRN (15:17)
[2024-01-02] MEDS: OXYTOCIN 10 UNITS/ML 10ML VIAL IM ONE (15:18)
[2024-01-03 06:41] LABS: Hematocrit (blood only) 35.5 % (37.0-47.0); Hemoglobin 12.6 g/dl (12.0-16.0); Mean Corpuscular Hemoglobin 31.6 pg (25.0-34.0); Mean Corpuscular Hgb Conc 35.5 g/dL (32.0-36.0); Mean Platelet Volume 10.6 fL (9.4-12.4); Platelet Count 175 K/uL (130-400); RDW Coefficient of Variation 12.7 % (11.5-14.5); RDW Standard Deviation 41.1 fL (36.4-46.3); Red Blood Count 3.99 M/uL (4.20-5.40)
--- NOTE | 2024-01-03 09:58 | Obstetrical Progress Note ---
Date of Service January 03, 2024 Subjective Ambulation: ambulating normally Voiding: no voiding problems Passing Gas:: Yes Diet Tolerance:: regular diet Lochia:: Small Feeding Type:: breast feeding Current Pain Level(1-10): 0 doing well. plans for d/c today Physical Exam Constitutional WD/WN, vitals as above Gastrointestinal (Abdomen) Inspection/Auscultation: abdomen normal to inspection abdomen soft and non-tender. fundus firm below U. Musculoskeletal Extremities: extremities normal to inspection Skin no rashes, warm and dry Neurologic patellar DTR's 2+ bilat, sensation intact Psychiatric A+Ox3, euthymic affect Results & Data Vital Signs (Past 12 Hours) Vital Signs Temp Pulse Resp BP 01/03/24 04:50 36.7 C 73 18 112/72 01/03/24 01:00 36.6 C 82 18 117/76 Laboratory Results Laboratory Results - last 72 hr 01/02/24 01/03/24 05:02 06:00 WBC 21.63 H 15.00 H RBC 4.89 3.99 L Hgb 15.5 12.6 D Hct 43.0 35.5 L MCV 87.9 89.0 MCH 31.7 31.6 MCHC 36.0 35.5 RDW Std Deviation 40.2 41.1 RDW Coeff of Rafaela 12.4 12.7 Plt Count 218 175 MPV 10.6 10.6
[2024-01-03] MEDS ORDERED: bisacodyL 5 MG TABEC PO SCH (20:00)
[2024-01-04] MEDS ORDERED: OXYTOCIN 10 UNITS/ML VIAL ONE (04:04)
[2024-01-04] MEDS ORDERED: bisacodyL 10 MG SUPP PR PRN (05:29)
== END 2024-01-03 16:15 | disposition home or self-care (01) | DRG 768 ==
LOC: OPB 02:56 → 4S1 02:58 → 4E2 07:40